=== PATIENT | female | born 1985 | race Caucasian/White ===

== ENCOUNTER 2023-09-08 20:15 | Outpatient (REF) | payer OTHER, SELFPAY ==
[2023-09-12 17:11] LABS: Age Gdln ACOG Testing Note (.); HPV Aptima Negative (Negative); IGP, Aptima HPV, rfx 16/18,45 Note (.)
== END 2023-09-08 20:16 | disposition home or self-care (01) ==
LOC: LAB 20:15
PROVIDERS: Visit Provider Physician Assistant
DX: Z01.419 Encounter for gynecological examination (general) (routine) without abnormal findings (principal)
CPT/HCPCS: 87624; G0145

== ENCOUNTER 2023-09-09 07:01 | Outpatient (OUT) | payer OTHER, SELFPAY ==
--- NOTE | 2023-09-09 07:10 | US_ITS ---
The [address] [address] Patient Name: EDNA FELIPE MRN: [id number] date: 1985 Sex: F Assigned Patient Location: US Current Patient Location: US Accession/Order Number: [id number] Exam Date: 09/09/2023 07:12 Report Date: 09/09/2023 08:03 At the request of: GABRIELLA ELIZONDO Procedure: US pelvis transvaginal EXAM: Pelvic ultrasound HISTORY: . IUD check Z30.431 . COMPARISON: None. TECHNIQUE: Transvaginal scanning was performed FINDINGS: Scanning of the pelvis demonstrates uterus to be anteverted and measures 8.4 x 3.9 x 4.6 cm. Endometrial complex measures 11 mm. Within the endometrial cavity are linear hyperechoic structures with shadowing consistent with an IUD which appears in good position. Right ovary measures 2.6 x 2 x 2.1 cm. Color-flow is noted. No masses are noted. Left ovary measures 3.2 x 2.8 x 3.1 cm. Color-flow is noted. There is a 2.3 x 2.2 cm simple cyst involving the left ovary. No fluid is noted in the cul-de-sac. US/US pelvis transvaginal IMPRESSION: 1. Normal-appearing anteverted uterus with a normal endometrial complex and IUD in place. 2. Normal right ovary. 3. 2.3 cm simple cyst in the left ovary. Electronically authenticated by: CRYSTAL PARRA Date: 09/09/2023 08:03
== END 2023-09-09 07:02 | disposition home or self-care (01) ==
PROVIDERS: Visit Provider Physician Assistant
DX: Z30.431 Encounter for routine checking of intrauterine contraceptive device (principal); N83.292 Other ovarian cyst, left side
CPT/HCPCS: 76830

== ENCOUNTER 2024-01-02 13:17 | Outpatient (OUT) | payer OTHER, SELFPAY ==
[2024-01-02 14:00] LABS: Basophils Percent Auto 0.3 % (0.2-2.0); Eosinophils Absolute Auto 0.1 10^3/uL (0.0-0.7); Eosinophils Percent Auto 1.1 % (0.9-7.0); Hemoglobin 13.4 g/dL (12.0-16.0); Immature Granulocytes Abs Auto 0.02 10^3/uL (0.00-0.03); Immature Granulocytes Pct Auto 0.2 % (0.0-0.5); Lymphocytes Absolute Auto 3.1 10^3/uL (1.2-3.8); Lymphocytes Percent Auto 28.8 % (20.5-60.0); Mean Corpuscular HGB Conc 32.7 g/dL (29.9-35.2); Mean Corpuscular Hemoglobin 28.6 pg (26.7-34.0); Mean Corpuscular Volume 87.4 fL (81.0-99.0); Mean Platelet Volume 10.4 fL (9.5-13.5); Monocytes Absolute Auto 0.4 10^3/uL (0.3-0.8); Neutrophils Absolute Auto 7.2 10^3/uL (1.4-6.5); Neutrophils Percent Auto 65.6 % (43.0-75.0); Platelet Count 371 10^3/uL (150-450); Red Blood Count 4.69 10^6/uL (4.20-5.40); White Blood Count 10.9 10^3/uL (4.0-11.0)
[2024-01-02 14:39] LABS: Estimated Average Glucose 120 mg/dL; Glycohemoglobin A1C 5.8 % (4.5-6.2)
[2024-01-02 15:35] LABS: Alanine Aminotransferase 22 U/L (14-59); Albumin Globulin Ratio 0.8; Albumin Level 3.3 g/dL (3.4-5.0); Alkaline Phosphatase 61 U/L (46-116); Anion Gap 15.8; Aspartate Amino Transferase 14 U/L (15-37); BUN Creatinine Ratio 13.5; Bilirubin Direct 0.1 mg/dL (0.0-0.2); Bilirubin Total 0.5 mg/dL (0.2-1.0); Calcium 9.2 mg/dL (8.5-10.1); Carbon Dioxide 24.7 mmol/L (21.0-32.0); Chloride 102 mmol/L (98-107); Chol HDL Ratio 4.3; Cholesterol 224 mg/dL (<=200); Estimated GFR (African America >60 (>=60); Estimated GFR (Non-African Ame >60 (>=60); Globulin 4.3 g/dL; Glucose 100 mg/dL (74-106); HDL Cholesterol 52 mg/dL (40-60); Potassium 3.5 mmol/L (3.5-5.1); Sodium 139 mmol/L (136-145); Total Protein 7.6 g/dL (6.4-8.2); Triglycerides 265 mg/dL (<=150)
== END 2024-01-02 13:18 | disposition home or self-care (01) ==
LOC: LAB 13:18
PROVIDERS: Visit Provider Family Medicine
DX: Z00.00 Encounter for general adult medical examination without abnormal findings (principal)
CPT/HCPCS: 36415; 80048; 80061; 80076; 83036; 84443; 85025

== ENCOUNTER 2024-01-08 00:40 | Emergency (ER) | payer OTHER, SELFPAY ==
[2024-01-08 00:44] VITALS: BP 160/100; PULSE 100; RESP 18; TEMP 36.7; O2SAT 99; BMI 56.5
--- OUTSIDE RECORDS SUMMARY | 2024-01-08 00:48 | XMS_ITS | CCD ---
Author Name Unknown Address [id number] [place] [address] Organization [facility] Care Team Providers Care Workplace Trainer And Assessor Name Role Phone FRANK REIS Primary Care UnavailHARPER Murphy Attending Unavailable FRANK REIS Primary Care UnavailHARPER Murphy Attending Unavailable MAYDA DAMIAN Referring Unavailable MAYDA DAMIAN Primary Care Unavailable Lili Luo Unavailable Marcia La Unavailable Lili Borges Unavailable DR FRANK REIS Admitting Unavailable CHATO, DR FRANK Garcia Primary Care Unavailable CHATO, DR FRANK Garcia Consulting Unavailable CHATO, DR FRANK Garcia Attending Unavailable KARASIGiovanna ., DR NUNEZ Attending Unavailjunior e CHATO, DR FRANK Garcia Primary Care Unavailable KARASIK ., DR NUNEZ Admitting Unavailabl e KARMASTER ., DR NUNEZ Consulting UnavailOctavia Salmon Unavailable Frank Reis MD Primary Care Provider FRANK REIS Attending Unavailable GER MYRICK Attending Unavailable ANGY ELIZONDO Attending Unavailable Allergies Allergy Classification Reported Allergen(s) Allergy Type Date of Onset Reaction(s) Facility (6 sources) Amoxicillin Drug Allergy 10-23-20 16 Rash [facility] (5 sources) Sulf-10 Drug allergy rash, nausea [facility] Other (1 source) Amoxicillin Drug Allergy 02-17-20 16 [facility] (1 source) Penicillin Drug Allergy [facility] (1 source) Sulfonamides (Antibiotic) Drug allergy (disorder) 02-17-20 16 [facility] (1 source) Penicillins Drug Intolerance 12-30-19 18 Rash [facility] (1 source) Sulfonamides (Antibiotic) Drug Intolerance 10-23-20 16 [facility] Medications Current Medications Medication Drug Class(es) Dates Sig (Normalized) Sig (Original) clonazePAM 1 mg oral tablet (7 sources) Benzodiazepine Start: 12-03-2023 take 1 tablet by mouth three times daily as needed clonazePAM (KlonoPIN) 1 MG tablet Indications: Major depressive disorder, recurrent, mild (HCC) (CMS/HCC) , Major depressive disorder, recurrent episode, mild (HCC) (CMS/HCC) TAKE 1 TABLET BY MOUTH THREE TIMES A DAY NEEDED 90 tablet 0 12/03/2023 Active Start: 07-15-2023 End: 12-03-2023 take 1 tablet by mouth three times daily as needed clonazePAM (KlonoPIN) 1 MG tablet Take 1 mg by mouth 3 (three) times a day as needed. 0 07/15/2023 12/03/2023 Discontinued KlonoPIN Active doxycycline hyclate 100 mg oral capsule (1 source) Tetracycline-class Drug Start: 07-17-2023 take 1 capsule by mouth every twelve hours Doxycycline Hyclate 100 MG 1 capsule Orally Twice a day for 10 days Jun, Active fluticasone propionate 0.05 mg/actuat metered dose nasal spray (1 source) Corticosteroid Start: 10-10-2021 take 2 spray(s) nasal route once daily Fluticasone Propionate 50 MCG/ACT 2 sprays Nasally Once a day for 14 day(s) Sep, Active Fluticasone Furoate 27.5 MCG/SPRAY (5 sources) Start: 06-29-2021 take 2 puff(s) nasal route once daily Fluticasone Furoate 27.5 MCG/SPRAY 2 puffs Nasally Once a day for 10 day(s) Jun, Active hydroCHLOROthiazide 25 mg / losartan potassium 100 mg oral tablet (3 sources) Thiazide Diuretic, Angiotensin 2 Receptor Charbel take 1 tablet by mouth in the morning losartan-hydroC HLOROthiazide (Hyzaar) 100-25 MG tablet Take 1 tablet by mouth in the morning. 0 Active take 1 tablet by emani th every twenty-four hours Losartan Potassium-HCTZ 100-25 MG 1 tabl et Orally Once a day Active lamoTRIgine 150 mg oral tablet (6 sources) Mood Stabilizer, Anti-epileptic Agent Start: 07-14-2023 take 1 tablet by mouth at bedtime lamoTRIgine (LaMICtal) 150 MG tablet Take 1 tablet by mouth at bedtime. 0 07/14/2023 Active LaMICtal Active Levonorgestrel (5 sources) Progestin, Progestin-containing Intrauterine Device Mirena Active methylPREDNISolone 4 mg oral tablet (6 sources) Corticosteroid Start: 023 methylPREDNISolone 4 MG take half with breakfast, half with dinner Orally as directed for 6 days Jun, Active Start: 07-11-2022 methylPREDNISo lone 4 MG as directed Orally for daily dose take half with breakfast, half with dinner for 6 days Jan, Not-Taking Metoprolol (3 sources) beta-Adrenergic Charbel Metoprolol Succinate Active predniSONE 20 mg oral tablet (1 source) Start: 021 take 1 tablet by mouth every twelve hours predniSONE 20 MG 1 tablet Orally bid for 5 day(s) Sep, Active Semaglutide-Weight Management (Wegovy) 0.25 MG/0.5ML solution auto-injector (1 source) Start: 023 inject 0.25 mg by subcutaneous injection every week Semaglutide-Weight Management (Wegovy) 0.25 MG/0.5ML solution auto-injector Indications: Morbid obesity with BMI of 60.0-69.9, adult (CMS/HCC) Inject 0.25 mg under the skin 1 (one) time per week 2 mL 0 09/29/2023 Active SUMAtriptan 25 mg oral tablet (1 source) Serotonin-1b and Serotonin-1d Receptor Agonist SUMAtriptan (Imitrex) 25 MG tablet TAKE 1 TABLET BY MOUTH ONCE NEEDED AT THE ONSET OF A HEADACHE. MAY REPEAT IN 2 HOURS ONCE 0 Active 24 hr venlafaxine 225 mg extended release oral tablet (6 sources) Serotonin and Norepinephrine Reuptake Inhibitor take 1 tablet by mouth every twenty-four hours in the morning venlafaxine XR (Effexor XR) 225 MG 24 hr tablet Take 225 mg by mouth in the morning. 0 Active Effexor Active 24 hr verapamil hydrochloride 120 mg extended release oral capsule (6 sources) Calcium Channel Charbel take 1 capsule by mouth every twenty-four hours at bedtime verapamil ER (Verelan) 120 MG 24 hr capsule Take 120 mg by mouth at bedtime. 0 Active Verapamil HCl Ac tive Completed/Discontinued Medications Medication Drug Class(es) Dates Sig (Normalized) Sig (Original) [id number] 200 actuat albuterol 0.09 mg/actuat metered dose inhaler (3 sources) beta2-Adrenergic Agonist Start: 07-11-2022 take 2 puff(s) by inhalation every four to six hours as needed Albuterol Sulfate HFA 108 (90 Base) MCG/ACT 2 puffs as needed Inhalation every 4-6 hours for 14 days Jun, Not-Taking Start: 07-11-2022 take 2 puff(s) by in halation every four to six hours as needed Albuterol Sulfate HFA 108 (90 Base) MCG/ACT 2 puffs as needed Inhalation every 4-6 hours for 14 days Jun, Not-Taking azithromycin 250 mg oral tablet (3 sources) Macrolide Antimicrobial Start: 07-11-2022 Azithromycin 250 MG 2 tablet on the first day, then 1 tablet daily for 4 days Orally Once a day for 5 day(s) Jun, Not-Taking dextromethorphan hydrobromide 1.5 mg/ml / pyrilamine maleate 1.5 mg/ml oral solution (8 sources) Uncompetitive P-pbeppo-U-aspartat e Receptor Antagonist, Sigma-1 Agonist Start: 07-11-2022 take 10 mL by mouth every eight hours [place] DM 7.5-7.5 MG/5ML 10 mL Orally every 8 hours for 5 days Jun, Not-Taking Start: 09-01-2020 [place] DM 7.5- 7.5 MG/5ML 10 ml Orally every 6-8 hours as needed for 8 days Aug, Not-Taking promethazine hydrochloride 12.5 mg oral tablet (5 sources) Phenothiazine Start: 09-01-2020 take 1 tablet by mouth every six hours Promethazine HCl 12.5 MG 1 tablet as needed Orally every 6 hrs for 4 days Aug, Not-Taking traZODone (5 sources) Serotonin Reuptake Inhibitor traZODone HCl Not-Taking traZODone HCl Ac tive Problems Active Problems Problem Classification Problem Date Documented Da te Episodic/Chronic Essential hypertension (1 source) Essential hypertension; Translations: [Essential (primary) hypertension] Onset: 09-10-2018 09-29-2023 Chronic Headache; including migraine (6 sources) Episodic cluster headache; Translations: [Episodic cluster headache, intractable] Onset: 09-10-2018 09-29-2023 Chronic Immunizations and screening for infectious disease (6 sources) Contact with and (suspected) exposure to other viral communicable diseases; Translations: [Contact with and (suspected) exposure to other viral communicable diseases] Onset: 08-31-2021 Resolved: 07-11-2022 Episodic Mood disorders (2 sources) Recurrent major depressive episodes, mild ; Translations: [Major depressive disorder, recurrent, mild] 12-01-2023 Chronic Nutritional deficiencies (1 source) Vitamin D deficiency, unspecified; Translations: [Vitamin D deficiency, unspecified] Onset: 09-10-2018 Chronic Other nutritional; endocrine; and metabolic disorders (1 source) Body mass index 40+ - severely obese; Translations: [Morbid (severe) obesity due to excess calories] Onset: 09-10-2018 09-29-2023 Chronic Other upper respiratory infections (5 sources) Acute pharyngitis, unspecified; Translations: [Acute sinusitis, unspecified] Onset: 08-31-2021 Resolved: 10-10-2021 Episodic Residual codes; unclassified (1 source) Obstructive sleep apnea syndrome; Translations: [Obstructive sleep apnea (adult) (pediatric)] Onset: 12-06-2021 09-29-2023 Chronic Viral infection (1 source) Other viral agents as the cause of diseases classified elsewhere Episodic Past or Other Problems Problem Classification Problem Date Documented Da te Episodic/Chronic Chronic obstructive pulmonary disease and bronchiectasis (1 source) Bronchitis, not specified as acute or chronic Onset: 07-11-2022 Resolved: 07-11-2022 Episodic Diseases of mouth; excluding dental (1 source) Other lesions of oral mucosa Onset: 08-31-2021 Resolved: 08-31-2021 Episodic Nausea and vomiting (1 source) Nausea; Translations: [Nausea] Onset: 01-12-2018 Episodic Other infections; including parasitic (4 sources) Trichomoniasis, unspecified; Translations: [TRICHOMONIASIS UNSPECIFIED] Onset: 03-05-2022 Episodic Otitis media and related conditions (1 source) Dysfunction of eustachian tube; Translations: [Unspecified Eustachian tube disorder, unspecified ear] Onset: 10-16-2017 09-29-2023 Episodic Skin and subcutaneous tissue infections (1 source) Cellulitis of right finger; Translations: [Cellulitis of right finger] Onset: 12-29-2017 Episodic Unclassified (2 sources) Contact with and (suspected) exposure to covid-19 Z20.822 Results Test Name Value Interpretation Reference Range Facility COVID/FLU RT-PCRon SARS-CoV-2 (COVID-19) RNA MOHAN+probe Ql (Unsp spec) Positive [facility] Other COVID/FLU RT-PCR Negative [facility] [employer] Other CBC AUTO DIFFon 02-19-2023 BASO # 0.0 103/ul Normal 0.0-0.[address] [facility] Comment on above: Performed By: #### C BC #### [facility] [address] [place] [address] Dr. Maxi Chen Basophils/100 WBC (Bld) 0.2 % Normal 0.2-2.[address] [facility] Comment on above: Performed By: #### C BC #### [facility] [address] [place] [address] Dr. Maxi Chen EO # 0.1 103/ul Normal 0.0-0.[address] [facility] Comment on above: Performed By: #### C BC #### [facility] [address] [place] [address] Dr. Maxi Chen Eosinophils/100 WBC (Bld) 1.7 % Normal 0.9-7.[address] [facility] Comment on above: Performed By: #### C BC #### [facility] [address] [place] [address] Dr. Maxi Chen Erythrocyte distribution width (RBC) [Ratio] 14.5 % Normal 11.0-15.[address] [facility] Comment on above: Performed By: #### C BC #### [facility] [address] [place] [address] Dr. Maxi Chen Hematocrit (Bld) [Volume fraction] 41.0 % Normal 36.0-48.[address] [facility] Comment on above: Performed By: #### C BC #### [facility] [address] [place] [address] Dr. Maxi Chen Hemoglobin (Bld) [Mass/Vol] 13.3 g/dL Normal 12.0-16.[address] [facility] Comment on above: Performed By: #### C BC #### [facility] [address] [place] [address] Dr. Maxi Chen IG # 0.02 10e3/ul Normal 0.00-0.[address] [facility] Comment on above: Performed By: #### C BC #### [facility] [address] [place] [address] Dr. Maxi Chen IG % 0.2 % Normal 0.0-0.[address] [facility] Comment on above: Performed By: #### C BC #### [facility] [address] [place] [address] Dr. Maxi Chen LYMPH # 2.2 103/ul Normal 1.2-3.[address] [facility] Comment on above: Performed By: #### C BC #### [facility] [address] [place] [address] Dr. Maxi Chen Lymphocytes/100 WBC (Bld) 26.3 % Normal 20.5-60.[address] [facility] Comment on above: Performed By: #### C BC #### [facility] [address] [place] [address] Dr. Maxi Chen MANUAL DIFF REQ NO Normal [facility] Comment on above: Performed By: #### C BC #### [facility] [address] [place] [address] Dr. Maxi Chen MCH (RBC) [Entitic mass] 28.1 pg Normal 26.7-34.[address] [facility] Comment on above: Performed By: #### C BC #### [facility] [address] [place] [address] Dr. Maxi Chen MCHC (RBC) [Mass/Vol] 32.4 g/dL Normal 29.9-35.[address] [facility] Comment on above: Performed By: #### C BC #### [facility] [address] [place] [address] Dr. Maxi Chen MCV (RBC) [Entitic vol] 86.7 fL Normal 81.0-99.[address] [facility] Comment on above: Performed By: #### C BC #### [facility] [address] [place] [address] Dr. Maxi Chen MONO # 0.4 103/ul Normal 0.3-0.[address] [facility] Comment on above: Performed By: #### C BC #### [facility] [address] [place] [address] Dr. Maxi Chen Monocytes/100 WBC (Bld) 5.3 % Normal 1.7-12.[address] [facility] Comment on above: Performed By: #### C BC #### [facility] [address] [place] [address] Dr. Maxi Chen NEUT # 5.6 103/ul Normal 1.4-6.[address] [facility] Comment on above: Performed By: #### C BC #### [facility] [address] [place] [address] Dr. Maxi Chen Neutrophils/100 WBC (Bld) 66.3 % Normal 43.0-75.[address] [facility] Comment on above: Performed By: #### C BC #### [facility] [address] [place] [address] Dr. Maxi Chen Platelet mean volume (Bld) [Entitic vol] 10.1 fL Normal 9.5-13.[address] [facility] Comment on above: Performed By: #### C BC #### [facility] [address] [place] [address] Dr. Maxi Chen PLT 343 103/ul Normal 150-450 [facility] Comment on above: Performed By: #### C BC #### [facility] [address] [place] [address] Dr. Maxi Chen RBC 4.73 106/ul Normal 4.20-5.40 [facility] Comment on above: Performed By: #### C BC #### [facility] [address] [place] [address] Dr. Maxi Chen WBC 8.4 103/ul Normal 4.0-11.[address] [facility] Comment on above: Performed By: #### C BC #### [facility] [address] [place] [address] Dr. Maxi Chen GLYCOHEMOGLOBIN A1Con 2022 ADA RECOMMENDATION SEE BELOW Normal [facility] Comment on above: Result Comment: ADA RECOMMENDED LIMIT 4.0 - 6.0 ADA THERAPEUTIC TARGET < 7.0 ACTION SUGGESTED > 7.0 Performed By: #### A 1C #### [facility] [address] [place] [address] Dr. Maxi Chen Glucose [Mass/Vol] 117 mg/dL Normal [facility] Comment on above: Performed By: #### A 1C #### [facility] [address] [place] [address] Dr. Maxi Chen HbA1c (Bld) [Mass fraction] 5.7 % Normal 4.5-6.[address] [facility] Comment on above: Performed By: #### A 1C #### [facility] [address] [place] [address] Dr. Maxi Chen LIPID PROFILEon 02-19-2023 CHOL-HDL RATIO NORM SEE BELOW Normal [facility] Comment on above: Result Comment: 3.3 - 4.4 LOW RISK 4.4 - 7.1 AVERAGE RISK 7.1 - 11.0 MODERATE RISK >11.0 HIGH RISK Performed By: #### T SH, BMP, LIVER, LIPID #### [facility] [address] [place] [address] Dr. Maxi Chen Cholesterol [Mass/Vol] 220 mg/dL Critically high <=[address] [facility] Comment on above: Performed By: #### T SH, BMP, LIVER, LIPID #### [facility] [address] [place] [address] Dr. Maxi Chen Cholesterol in HDL [Mass/Vol] 42 mg/dL Normal 40-[address] [facility] Comment on above: Performed By: #### T SH, BMP, LIVER, LIPID #### [facility] [address] [address] [address] Maxi Chen Cholesterol in LDL [Mass/Vol] 135.0 mg/dL Normal [facility] Comment on above: Performed By: #### T SH, BMP, LIVER, LIPID #### [facility] [address] [address] [address] Maxi Chen Cholesterol.total/Ch olesterol in HDL [Mass ratio] 5.2 {ratio} Normal [facility] Comment on above: Performed By: #### T SH, BMP, LIVER, LIPID #### [facility] [address] [address] [address] Maxi Chen HDL NORMAL > or = 60 mg/dl - LOW CARDIOVASCULAR RISK <40 mg/dl - HIGH CARDIOVASCULAR RISK Normal [facility] Comment on above: Performed By: #### T SH, BMP, LIVER, LIPID #### [facility] [address] [address] [address] Maxi Chen LDL CALC NORMAL SEE BELOW Normal [facility] Comment on above: Result Comment: <100 mg/dl OPTIMAL 100 - 129 mg/dl NEAR OR ABOVE OPTIMAL 130 - 159 mg/dl BORDERLINE HIGH 160 - 189 mg/dl HIGH >190 mg/dl VERY HIGH Performed By: #### T SH, BMP, LIVER, LIPID #### [facility] [address] [address] [address] Maxi Chen Triglyceride [Mass/Vol] 215 mg/dL Critically high <=[address] [facility] Comment on above: Performed By: #### T SH, BMP, LIVER, LIPID #### [facility] [address] [address] [address] Maxi Chen VLDL CALC 43.0 mg/dL Normal [facility] Comment on above: Performed By: #### T SH, BMP, LIVER, LIPID #### [facility] [address] [address] [address] Maxi Chen LIVER PROFILEon 02-19-2023 Albumin [Mass/Vol] 3.3 g/dL Critically low 3.4-5.0 [facility] Comment on above: Performed By: #### T SH, BMP, LIVER, LIPID #### [facility] [address] [address] [address] Maxi Chen Albumin/Globulin [Mass ratio] 0.8 {ratio} Normal [facility] Comment on above: Performed By: #### T SH, BMP, LIVER, LIPID #### [facility] [address] [place] [address] Dr. Maxi Chen ALP [Catalytic activity/Vol] 58 U/L Normal 46-[address] [facility] Comment on above: Performed By: #### T SH, BMP, LIVER, LIPID #### [facility] [address] [place] [address] Dr. Maxi Chen ALT [Catalytic activity/Vol] 37 U/L Normal 14-[address] [facility] Comment on above: Performed By: #### T SH, BMP, LIVER, LIPID #### [facility] [address] [place] [address] Dr. Maxi Chen AST [Catalytic activity/Vol] 18 U/L Normal 15-[address] [facility] Comment on above: Performed By: #### T SH, BMP, LIVER, LIPID #### [facility] [address] [place] [address] Dr. Maxi Chen BILI, CONJUGATED 0.1 mg/dL Normal 0.0-0.[address] [facility] Comment on above: Performed By: #### T SH, BMP, LIVER, LIPID #### [facility] [address] [place] [address] Dr. Maxi Chen Bilirubin [Mass/Vol] 0.4 mg/dL Normal 0.2-1.[address] [facility] Comment on above: Performed By: #### T SH, BMP, LIVER, LIPID #### [facility] [address] [place] [address] Dr. Maxi Chen Globulin (S) [Mass/Vol] 4.2 g/dL Normal [facility] Comment on above: Performed By: #### T SH, BMP, LIVER, LIPID #### [facility] [address] [place] [address] Dr. Maxi Chen Protein [Mass/Vol] 7.5 g/dL Normal 6.4-8.2 [facility] Comment on above: Performed By: #### T SH, BMP, LIVER, LIPID #### [facility] [address] [address] [address] Maxi Chen PROF CHEM 8 (BAS METB)on Anion gap [Moles/Vol] 11.8 mmol/L Normal [facility] Comment on above: Performed By: #### T SH, BMP, LIVER, LIPID #### [facility] [address] [place] [address] Dr. Maxi Chen Calcium [Mass/Vol] 9.1 mg/dL Normal 8.5-10.1 [facility] Comment on above: Performed By: #### T SH, BMP, LIVER, LIPID #### [facility] [address] [place] [address] Dr. Maxi Chen Chloride [Moles/Vol] 102 mmol/L Normal 98-107 [facility] Comment on above: Performed By: #### T SH, BMP, LIVER, LIPID #### [facility] [address] [place] [address] Dr. Maxi Chen CO2 [Moles/Vol] 30.5 mmol/L Normal 21.0-32.[address] [facility] Comment on above: Performed By: #### T SH, BMP, LIVER, LIPID #### [facility] [address] [place] [address] Dr. Maxi Chen Creatinine [Mass/Vol] 0.76 mg/dL Normal 0.55-1.02 [facility] Comment on above: Performed By: #### T SH, BMP, LIVER, LIPID #### [facility] [address] [place] [address] Dr. Maxi Chen EGFR-AF LATVIAN >60 Normal >=60 [facility] Comment on above: Performed By: #### T SH, BMP, LIVER, LIPID #### [facility] [address] [place] [address] Dr. Maxi Chen EGFR-NON AF LATVIAN >60 Normal >=60 [facility] Comment on above: Performed By: #### T SH, BMP, LIVER, LIPID #### [facility] [address] [address] [address] Maxi Chen Glucose [Mass/Vol] 106 mg/dL Normal 74-106 [facility] Comment on above: Performed By: #### T SH, BMP, LIVER, LIPID #### [facility] [address] [place] [address] Dr. Maxi Chen Potassium [Moles/Vol] 3.3 mmol/L Critically low 3.5-5.[address] [facility] Comment on above: Performed By: #### T SH, BMP, LIVER, LIPID #### [facility] [address] [place] [address] Dr. Maxi Chen Sodium [Moles/Vol] 141 mmol/L Normal 136-145 [facility] Comment on above: Performed By: #### T BRYSON, BMP, LIVER, LIPID #### [facility] [address] [place] [address] Dr. Maxi Chen Urea nitrogen [Mass/Vol] 5.0 mg/dL Critically low 7.0-18.[address] [facility] Comment on above: Performed By: #### T BRYSON, BMP, LIVER, LIPID #### [facility] [address] [place] [address] Dr. Maxi Chen Urea nitrogen/Creatinine [Mass ratio] 6.6 mg/mg Normal [facility] Comment on above: Performed By: #### T BRYSON, BMP, LIVER, LIPID #### [facility] [address] [place] [address] Dr. Maxi Chen TSHon 02-19-2023 TSH 1.302 uIU/mL Normal 0.358-3.740 [facility] Comment on above: Performed By: #### T BRYSON, BMP, LIVER, LIPID #### [facility] [address] [place] [address] Dr. Maxi Chen COVID + FLU Quick Testingon 02-04-2023 SARS-CoV-2 (COVID-19) RNA MOHAN+probe Ql (Unsp spec) Negative [facility] Other COVID + FLU Quick Testing Negative [facility] [employer] Other Quick Strepon 02-04-2023 S. pyogenes Org specific cx Ql (Throat) Negative [facility] Other Quick Strep [facility] Other COVID Quick Testingon 2021 Result Negative [employer] [facility] [employer] Other CHLAMYDIA/GONOCOCCUS MOHAN (SW AB/URINE/PAPon 03-06-2022 Chlamydia trachomatis, MOHAN Negative Normal Negative [facility] Comment on above: Performed By: #### C T/NGNA #### [facility] [address] [place] [address] Dr. Maxi Chen Neisseria gonorrhoeae, MOHAN Negative Normal Negative [facility] Comment on above: Performed By: #### C T/NGNA #### [facility] [address] [place] [address] Dr. Maxi Chen VAGINITIS/VAGINOSIS DNA PROB Evert 03-06-2022 Maye species Negative Normal Negative [facility] Comment on above: Performed By: #### V AGINT #### [facility] [address] [address] [address] Maxi Chen Gardnerella vaginalis Negative Normal Negative [facility] Comment on above: Performed By: #### V AGINT #### [facility] [address] [place] [address] Dr. Maxi Chen Trichomonas vaginalis Negative Normal Negative [facility] Comment on above: Performed By: #### V AGINT #### [facility] [address] [address] [address] Maxi Chen CBCon 09-10-2018 Erythrocyte distribution width Ratio (RBC) 14.3 % Normal 11.8-14.4 [facility] Comment on above: Performed By: #### C BC, CP, LIPR, VD25 #### [facility] [place] [address] Hematocrit Volume Fraction (Bld) 42.8 % Normal 36.3-47.1 [facility] Comment on above: Performed By: #### C BC, CP, LIPR, VD25 #### [address] [address] Hemoglobin mass conc (Bld) 13.5 g/dL Normal 11.9-15.1 [facility] Comment on above: Performed By: #### C BC, CP, LIPR, VD25 #### [address] [address] MCH Entitic mass (RBC) 27.3 pg Normal 25.2-33.5 [facility] Comment on above: Performed By: #### C BC, CP, LIPR, VD25 #### [facility] [employer] [address] [place] [address] MCHC mass conc (RBC) 31.5 g/dL Normal 28.4-34.8 [facility] Comment on above: Performed By: #### C BC, CP, LIPR, VD25 #### [address] [address] MCV Entitic volume (RBC) 86.5 fL Normal 82.6-102.9 [facility] Comment on above: Performed By: #### C BC, CP, LIPR, VD25 #### [address] [address] NRBC Automated 0.0 per 100 WBC Normal 0.0 [facility] Comment on above: Performed By: #### C BC, CP, LIPR, VD25 #### [address] [address] Platelet mean volume Entitic volume (Bld) 11.4 fL Normal 8.1-13.5 [facility] Comment on above: Performed By: #### C BC, CP, LIPR, VD25 #### [address] [address] Platelets #/vol (Bld) 360 10*3/uL Normal 138-453 [facility] Comment on above: Performed By: #### C BC, CP, LIPR, VD25 #### [facility] [place] [address] RBC #/vol (Bld) 4.95 10*6/uL Normal 3.95-5.11 [facility] Comment on above: Performed By: #### C BC, CP, LIPR, VD25 #### [facility] [address] [place] [address] WBC #/vol (Bld) 10.0 10*3/uL Normal 3.5-11.3 [facility] Comment on above: Performed By: #### C BC, CP, LIPR, VD25 #### [facility] [employer] [address] [place] [phone] Comp Metabolic Profon 2017 (cont.) Normal [facility] Comment on above: Result Comment: Aver age GFR for 30-39 years old: 107 mL/min/1.73sq m Chronic Kidney Disease: <60 mL/min/1.73sq m Kidney failure: <15 mL/min/1.73sq m eGFR calculated using average adult body mass. Additional eGFR calculator available at: http://[email or web address].com/multiple_crcl_2012.htm Performed By: #### C BC, CP, LIPR, VD25 #### [facility] [address] [place] [address] Albumin mass conc 4.2 g/dL Normal 3.5-5.2 [facility] Comment on above: Performed By: #### C BC, CP, LIPR, VD25 #### [facility] [employer] [address] [place] [phone] Albumin/Globulin mass ratio 1.2 {ratio} Normal 1.0-2.5 [facility] Comment on above: Performed By: #### C BC, CP, LIPR, VD25 #### [facility] [employer] [address] [place] [phone] Alkaline Phos 63 U/L Normal 35-104 [facility] Comment on above: Performed By: #### C BC, CP, LIPR, VD25 #### [facility] [employer] [address] [place] [address] ALT enzyme act/vol 21 U/L Normal 5-33 [facility] Comment on above: Performed By: #### C BC, CP, LIPR, VD25 #### [facility] [employer] [address] [place] [address] Anion gap molar conc 25 mmol/L High 9-17 [facility] Comment on above: Performed By: #### C BC, CP, LIPR, VD25 #### [facility] [employer] [address] [place] [address] AST enzyme act/vol 18 U/L Normal <32 [facility] Comment on above: Performed By: #### C BC, CP, LIPR, VD25 #### [facility] [employer] [address] [place] [address] Bilirubin Ql (U) 0.29 mg/dL Low 0.3-1.[address] [facility] Comment on above: Performed By: #### C BC, CP, LIPR, VD25 #### [facility] [employer] [address] [place] [phone] Calcium mass conc 9.3 mg/dL Normal 8.6-10.4 [facility] Comment on above: Performed By: #### C BC, CP, LIPR, VD25 #### [facility] [address] [place] [address] Chloride molar conc 98 mmol/L Normal 98-107 [facility] Comment on above: Performed By: #### C BC, CP, LIPR, VD25 #### [facility] [employer] [address] [place] [address] CO2 molar conc 21 mmol/L Normal 20-31 [facility] Comment on above: Performed By: #### C BC, CP, LIPR, VD25 #### [address] [address] Creatinine mass conc 0.52 mg/dL Normal 0.50-0.90 [facility] Comment on above: Performed By: #### C BC, CP, LIPR, VD25 #### [facility] [employer] [address] [place] [address] GFR, Amer >60 Normal >[address] [facility] Comment on above: Performed By: #### C BC, CP, LIPR, VD25 #### [facility] [employer] [address] [place] [address] GFR,non Amer >60 Normal >60 [facility] Comment on above: Performed By: #### C BC, CP, LIPR, VD25 #### [facility] [employer] [address] [place] [address] Glucose mass conc 93 mg/dL Normal 70-99 [facility] Comment on above: Performed By: #### C BC, CP, LIPR, VD25 #### [facility] [employer] [address] [place] [address] Potassium molar conc 3.8 mmol/L Normal 3.7-5.3 [facility] Comment on above: Performed By: #### C BC, CP, LIPR, VD25 #### [facility] [employer] [address] [place] [address] Protein mass conc 7.6 g/dL Normal 6.4-8.3 [facility] Comment on above: Performed By: #### C BC, CP, LIPR, VD25 #### [employer] [address] [place] [address] Sodium molar conc 144 mmol/L Normal 135-144 [facility] Comment on above: Performed By: #### C BC, CP, LIPR, VD25 #### [employer] [address] [place] [address] Urea nitrogen mass conc 9 mg/dL Normal 6-20 [facility] Comment on above: Performed By: #### C BC, CP, LIPR, VD25 #### [facility] [employer] [address] [place] [address] BUN/CRE Ratio NOT REPORTED Normal -20 [facility] Comment on above: Performed By: #### C BC, CP, LIPR, VD25 #### [facility] [employer] [address] [place] [phone] Staging: NOT REPORTED Normal [facility] Comment on above: Performed By: #### C BC, CP, LIPR, VD25 #### [facility] [employer] [address] [place] [address] Lipid Profileon 09-10-2018 Cholesterol in HDL mass conc 47 mg/dL Normal >40 [facility] Comment on above: Result Comment: HDL Guidelines: <40 Undesirable 40-59 Borderline >59 Desirable Performed By: #### C BC, CP, LIPR, VD25 #### [facility] [employer] [address] [place] [address] Cholesterol in LDL mass conc 134 mg/dL High 0-130 [facility] Comment on above: Result Comment: LDL Guidelines: <100 Desirable 100-129 Near to/above Desirable 130-159 Borderline >159 Undesirable Direct (measured) LDL and calculated LDL are not interchangeable tests. Performed By: #### C BC, CP, LIPR, VD25 #### [facility] [address] [place] [address] Cholesterol mass conc 227 mg/dL High <200 [facility] Comment on above: Result Comment: Cholesterol Guidelines: <200 Desirable 200-240 Borderline >240 Undesirable Performed By: #### C BC, CP, LIPR, VD25 #### [address] [address] Cholesterol.total/Ch olesterol in HDL mass ratio 4.8 {ratio} Normal <5 [facility] Comment on above: Performed By: #### C BC, CP, LIPR, VD25 #### [facility] [address] [place] [address] Triglyceride mass conc 229 mg/dL High <150 [facility] Comment on above: Result Comment: Triglyceride Guidelines: <150 Desirable 150-199 Borderline 200-499 High >499 Very high Based on AHA Guidelines for fasting triglyceride, July 2012. Performed By: #### C BC, CP, LIPR, VD25 #### [facility] [employer] [address] [place] [phone] Cholesterol in VLDL mass conc NOT REPORTED Normal -30 [facility] Comment on above: Performed By: #### C BC, CP, LIPR, VD25 #### [facility] [employer] [address] [place] [phone] Vitamin D 25 OHon 09-10-2018 Vitamin D 25 [place] 12.1 ng/mL Low 30.0-100.0 [facility] Comment on above: Result Comment: Reference Range: Vitamin D status Range Deficiency <20 ng/mL Mild Deficiency 20-30 ng/mL Sufficiency 30-100 ng/mL Toxicity >100 ng/mL Performed By: #### C BC, CP, LIPR, VD25 #### [address] [address] HCG, ,Urineon 01-12 HCG.beta subunit ( test) Ql (U) Negative Normal NEG [facility] Comment on above: Result Comment: Spec imens with hCG levels near the threshold of the test (25 mIU/mL) may give a negative or indeterminate result. In such cases, another test should be performed with a new specimen in 48-72 hours. If early is suspected clinically in this setting, correlation with quantitative serum b-hCG level is suggested. Performed at [facility] [place], [address] [place] [address] UA w/Reflex Cultureon 2017 Comment NOT REPORTED Normal [facility] Acetoacetic Acid,Ur Negative Normal NEG [facility] Bilirubin.direct mass conc Negative Normal NEG [facility] Color Nom (U) YELLOW Normal YEL [facility] Glucose mass conc Negative Normal NEG [facility] Hemoglobin mass conc (Bld) SMALL Abnormal NEG [facility] Leuckocyte Esterase Negative Normal NEG [facility] Comment on above: Result Comment: Perf ormed at [facility] [place], [address] [place] [address] Nitrite,Ur Negative Normal NEG [facility] PH,Ur 7.0 Normal 5.0-8.0 [facility] Protein mass conc Negative Normal NEG [facility] Spec. [place],Ur 1.015 Normal 1.005-1.030 [facility] Turbidity CLEAR Normal CLEAR [facility] Urobilinogen,Ur Normal Normal NORM [facility] Urinalysis,Microon 8 Amorphous sediment LM Ql (Urine sed) NOT REPORTED Normal [facility] Bacteria LM.HPF #/area (Urine sed) NOT REPORTED Normal [facility] Casts LM.LPF #/area (Urine sed) NOT REPORTED Normal [facility] Crystals LM Nom (Urine sed) NOT REPORTED Normal NONE [facility] Epithelial, Renal NOT REPORTED Normal 0 [facility] Mucus Strands NOT REPORTED Normal NONE [facility] Trichomonas NOT REPORTED Normal NONE [facility] Yeast LM Ql (Urine sed) NOT REPORTED Normal [facility] ----- Normal [facility] Epithelial cells LM.HPF #/area (Urine sed) 0 TO 2 Normal 0-5 [facility] Other Observations Utilizing a urinalysis as the only screening method to exclude a potential Abnormal NREQ [facility] Comment on above: Result Comment: urop athogen can be unreliable in many patient populations. Rapid screening tests are less sensitive than culture and if UTI is a clinical possibility, culture should be considered despite a negative urinalysis. Performed at [facility], [address] [place] [phone] RBC #/vol (U) 0 TO 2 Normal 0-2 [facility] WBC #/vol (U) None Normal 0-5 [facility] Vital Signs Date Time Vital Sign Value Performing Clinician Facility 07-17-2023 10:40-0400 Body height 165.1 cm Octavia Keen Other [facility] Other 07-17-2023 10:40-0400 Body mass index (BMI) [Ratio] 57.74 kg/m2 Octavia Keen Other [facility] Other 07-17-2023 10:40-0400 Body temperature 98.3 [degF] Octavia Keen Other [facility] Other 07-17-2023 10:40-0400 Body weight 157.4 kg Octavia Keen Other [facility] Other 07-17-2023 10:40-0400 Diastolic blood pressure 94 mm[Hg] Octavia Keen Other [facility] Other 07-17-2023 10:40-0400 Respiratory rate 18 /min Octavia Keen Other [facility] Other 07-17-2023 10:40-0400 SaO2% (BldA) [Mass fraction] 98 % Octavia Keen Other [facility] Other 07-17-2023 10:40-0400 Systolic blood pressure 147 mm[Hg] Octavia Keen Other [facility] Other 02-04-2023 15:10-0400 Body height 165.1 cm Lili Borges Other [facility] Other 02-04-2023 15:10-0400 Body mass index (BMI) [Ratio] 57.9 kg/m2 Lili Borges Other [facility] Other 02-04-2023 15:10-0400 Body temperature 99.1 [degF] Lili Borges Other [facility] Other 02-04-2023 15:10-0400 Body weight 157.85 kg Lili Borges Other [facility] Other 02-04-2023 15:10-0400 Diastolic blood pressure 100 mm[Hg] Lili Borges Other [facility] Other 02-04-2023 15:10-0400 Respiratory rate 18 /min Lili Borges Other [facility] Other 02-04-2023 15:10-0400 SaO2% (BldA) [Mass fraction] 96 % Lili Borges Other [facility] Other 02-04-2023 15:10-0400 Systolic blood pressure 153 mm[Hg] Lili Borges Other [facility] Other 07-11-2022 12:50-0400 Body height 165.1 cm Lili Borges Other [facility] Other 07-11-2022 12:50-0400 Body mass index (BMI) [Ratio] 59.9 kg/m2 Lili Borges Other [facility] Other 07-11-2022 12:50-0400 Body temperature 97.7 [degF] Lili Borges Other [facility] Other 07-11-2022 12:50-0400 Body weight 163.3 kg Lili Borges Other [facility] Other 07-11-2022 12:50-0400 Respiratory rate 18 /min Lili Borges Other [facility] Other 07-11-2022 12:50-0400 SaO2% (BldA) [Mass fraction] 97 % Lili Borges Other [facility] Other 10-10-2021 15:15-0500 Body height 165.1 cm Marcia Gregorymond Other [facility] Other 10-10-2021 15:15-0500 Body mass index (BMI) [Ratio] 58.24 kg/m2 Marcia Bessie Other [facility] Other 10-10-2021 15:15-0500 Body temperature 98.2 [degF] Marcia Bessie Other [facility] Other 10-10-2021 15:15-0500 Body weight 158.76 kg Marcia Bessie Other [facility] Other 12-15-2021 15:15-0500 Respiratory rate 18 /min Marcia La Other [facility] Other 10-10-2021 15:15-0500 SaO2% (BldA) [Mass fraction] 96 % Marcia La Other [facility] Other 08-31-2021 11:45-0400 Body height 165.1 cm Lili Ginty Other [facility] Other 08-31-2021 11:45-0400 Body mass index (BMI) [Ratio] 58.24 kg/m2 Lili Ginty Other [facility] Other 08-31-2021 11:45-0400 Body temperature 97.8 [degF] Lili Ginty Other [facility] Other 08-31-2021 11:45-0400 Body weight 158.76 kg Lili Ginty Other [facility] Other 08-31-2021 11:45-0400 SaO2% (BldA) [Mass fraction] 94 % Lili Ginty Other [facility] Other Encounters Encounter Date Encounter Type Care Provider Facility Start: 12-26-2023 End: 12-26-2023 ambulatory FRANK REIS Not Available Start: 12-01-2023 Refill Frank Vasques Work Phone: [facility] Comment on above: Major depressive dis order, recurrent, mild (HCC) (CMS/HCC); Major depressive disorder, recurrent episode, mild (HCC) (CMS/HCC) Start: 09-22-2023 End: 09-22-2023 ambulatory GER MYRICK Not Available Start: 09-08-2023 End: 09-08-2023 ambulatory ANGY MIKHAIL Not Available Start: 07-17-2023 End: 07-17-2023 ambulatory Octavia Keen Other [facility] Other Start: 07-17-2023 Office outpatient vi sit 15 minutes Octavia Keen [facility] Start: 02-22-2023 Encounter for genera l adult medical examination without abnormal findings DR FRANK REIS [facility] Start: 02-19-2023 End: 02-20-[address] FRANK REIS Facility:[facility] Start: 02-19-2023 End: 02-20-2023 Encounter for general adult medical examination without abnormal findings DR FRANK REIS Facility:[facility] Start: 02-04-2023 End: 02-04-2023 ambulatory Lili Borges Other [facility] Other Start: 02-04-2023 Office outpatient vi sit 25 minutes Lili Borges [facility] Start: 07-11-2022 End: 07-11-2022 ambulatory Lili Borges Other [facility] Other Start: 07-11-2022 Office outpatient vi sit 25 minutes Lili Borges [facility] Start: 03-05-2022 End: 03-05-[address] MAYRA GARCIA . Facility:[facility] Start: 10-10-2021 End: 10-10-2021 ambulatory Marcia La Other [facility] Other Start: 10-10-2021 Office outpatient vi sit 15 minutes Marcia Bessie [facility] Start: 08-31-2021 End: 08-31-2021 ambulatory Lili Ginty Other [facility] Other Start: 08-31-2021 Office outpatient vi sit 15 minutes Lili Ginty [facility] Start: 09-10-2018 Encounter for genera l adult medical examination without abnormal findings FRANK REIS [facility] Start: 09-10-2018 End: 09-11-2018 Patient encounter procedure MAYDA DAMIAN [facility] Start: 01-12-2018 End: 01-12-2018 Emergency department patient visit FRANK REIS [facility] Start: 12-29-2017 End: 12-29-2017 Emergency department patient visit FRANK REIS [facility] Procedures Date Procedure Procedure Detail Performing Clinician Start: 09-10-2018 Blood count complete automated FRANK DONOVANR Start: 09-10-2018 Comprehensive metabolic panel FRANK NADERER Start: 09-10-2018 Lipid panel FRANK WILLS [facility] Start: 09-10-2018 VITAMIN D 25 HYDROXY MA NELDA NADERER Start: 01-12-2018 Microscopic urinalysis FRANK DAVENPORTEREKrystal Start: 01-12-2018 , URINE FRANK N ADERER Start: 01-12-2018 UA W/REFLEX CULTURE LETI Chaudhary CHATO Plan of Treatment Date Care Activity Detail Author Start: 09-09-2024 End: 09-09-2024 Patient encounter procedure 09/09/2024 9:00 AM EST Office Visit [facility] [address] [place] [id number] Angy Elizondo PA [address] [place] [address] [facility] Start: 06-27-2023 Influenza vaccination Influenza Vacc ine (#1) [facility] Start: 2016 Screening for malign ant neoplasm of cervix [facility] Start: 2007 Screening for malign ant neoplasm of cervix Pap Smear [facility] Payers Date Payer Category Payer Managed Care O (unspecified) [employer] [id number] 2016-Present [address] [place] [phone] [facility] [id number] 1986 Unknown [id number] 1986 Unknown [id number] 1986 Unknown [id number] 1986 Unknown [id number] 1986 Unknown [id number] 1986 Unknown [id number] .1259 1986 Unknown [id number] [id number] .1259 1986 Unknown [id number] .1259 1958 [facility] [id number] 1958 Private Health Insurance [id number] Social History Date Type Detail Facility Unknown if ever smoked [facility] [employer] Other Start: 09-05-2023 Sex Assigned At N [facility] [employer] Other Start: 09-05-[address] [facility] Never smoked tobacco [facility] Start: 09-22-2023 Alcohol intake Current drinke r of alcohol (finding) [facility] Start: 09-05-2023 History of Social function [facility] How often to you hav e a drink containing alcohol? Monthly or less [facility] How many standard drinks containing alcohol do you have on a typical day? 1 or 2 [facility] How often do you hav e 6 or more drinks on 1 occasion? Never [facility] Start: 09-05-2023 Alcohol Comment Caffeine intak e: 1-2 cups per day [facility] Start: 1985 Sex Assigned At Not on file [facility] Evaluation note 07-17-2023 Note Date & Type Note Facility 07-17-2023 Evaluation note Encounter Date Diagnosis Assessment Notes Jun, Contact with and (suspected) exposure to covid-19 (ICD-10 - Z20.822) Discussed with patient COVID PCR is positive. Patient is on day 7 of symptoms. Discussed CDC guidelines of 5 days of quarantine, 5 days of wearing a mask. Should continue to wear a mask for the next 3 days. Discussed should notify any close contacts for exposure. Follow-up with PCP if not improving over the next week. Jun, Acute non-recurren t maxillary sinusitis (ICD-10 - J01.00) Discussed with patient symptoms likely remain viral at this time. Discussed antibiotics do not treat viral illnesses unfortunately. Discussed typical duration of viral URI is 7 to 12 days. Patient is advised to use medrol dose pack, continue claritin, mucinex D, flonase for symptomatic treatment. If symptoms or not gradually improving over the next 3-4 days, fill printed prescription for doxy and finish entire course. Follow-up with PCP if symptoms are not improved with 5 to 7 days of antibiotic. Patient verbalized understanding of treatment plan. [facility] Other Evaluation note 02-04-2023 Note Date & Type Note Facility 02-04-2023 Evaluation note Encounter Date Diagnosis Assessment Notes Jan, Contact with and (suspected) exposure to covid-19 (ICD-10 - Z20.822) Jan, Acute sinusitis, unspecified (ICD-10 - J01.90) Advise patient that rapid COVID/influenza A/B test and rapid strep test was negative in office today. Discussed diagnosis with patient today. Will treat as viral at this time based on physical exam and duration of symptoms. Advised patient viral syndromes last 7-10 days. If symptoms do not improve in the next 3-4 days patient may call UC and I will send antibiotic. Use Rx of Medrol Dosepak as directed. Encouraged supportive care as directed today. Push fluids/rest, nasal saline washes as directed, may use Tylenol or Motrin as needed for discomfort, OTC plain Mucinex. Patient to follow up with PCP or UC for any new or worsening symptoms. Immediate eval if SOB, wheezing, difficulty breathing, or other concerning symptoms. Patient verbalizes understanding and is agreeable to treatment plan. Jan, Sore throat (ICD-10 - J02.9) Jan, Other viral agents as the cause of diseases classified elsewhere (ICD-10 - B97.89) [email or web address] Other Evaluation note 07-11-2022 Note Date & Type Note Facility 07-11-2022 Evaluation note Encounter Date Diagnosis Assessment Notes Jun, Contact with and (suspected) exposure to other viral communicable diseases (ICD-10 - Z20.828) Jun, Bronchitis (ICD-10 - J40) Advised patient that rapid COVID test is negative. Discussed diagnosis with patient in detail. Advised patient that cough may linger for 3 weeks. Will treat today with antibiotic. Reviewed allergies and recent antibiotic use. Advised to take medications as prescribed, reviewed side effects of steroid, take with food and plenty of water, finish entire course. Encouraged supportive care as directed, push fluids and rest, may use Tylenol as needed for fever/discomfo rt, cool mist humidifier. May use [place] as needed for cough, do not take any other OTCs while using [place]. Patient to follow up with PCP in 2-3 days. Immediate eval if SOB, difficulty breathing, chest pain, dizziness, or other concerning symptoms. Patient verbalizes understanding and is agreeable to treatment plan [email or web address] Other Evaluation note 10-10-2021 Note Date & Type Note Facility 10-10-2021 Evaluation note Encounter Date Diagnosis Assessment Notes Sep, Contact with and (suspected) exposure to other viral communicable diseases (ICD-10 - Z20.828) Sep, Acute sinusitis, recurrence not specified, unspecified location (ICD-10 - J01.90) Drink plenty fluids, get plenty of rest. Use the Flonase inhaler as prescribed until your symptoms improve. Take the prednisone as prescribed until gone. Tylenol or Motrin as needed for aches pains or fevers. Follow-up with your family physician if no improvement in 2 to 3 days. Sep, Other Additional time spent conducting pre-visit phone call, screening for symptoms, instructions on social distancing, application and removal of PPE, and cleaning of examination room, equipment and supplies was preformed. Patient education given for testing methodology and results. Patient care instructions given in writting by [facility] document. [email or web address] Other Evaluation note 08-31-2021 Note Date & Type Note Facility 08-31-2021 Evaluation note Encounter Date Diagnosis Assessment Notes Aug, Contact with and (suspected) exposure to other viral communicable diseases (ICD-10 - Z20.828) Aug, Mouth sores (ICD-10 - K13.79) Advised patient that rapid COVID antigen test and strep test was negative today. No signs of bacterial infection present today on exam. Will send in rx for magic mouthwash. Advised to use as directed. Supportive care as directed, increase fluids and rest, Tylenol/Motrin as directed, OTC cough/cold remedies as directed on packaging, cool mist humidifier, throat lozenges. Discussed infection control practices such as good hand washing and mask wearing. Patient to follow up with PCP if sx persist or worsen despite treatment. Immediate eval for warning s/sx as discussed. Patient verbalizes understanding and is agreeable to treatment plan Aug, Sore throat (ICD-10 - J02.9) Aug, Other Additional time spent conducting pre-visit phone call, screening for symptoms, instructions on social distancing, application and removal of PPE, and cleaning of examination room, equipment and supplies was preformed. Patient education given for testing methodology and results. Patient care instructions given in writting by [facility] document [email or web address] Other Evaluation note Note Date & Type Note Facility Evaluation note Diagnosis Major depressive disorder, recurrent, mild (HCC) (CMS/HCC) Major depressive disorder, recurrent episode, mild Major depressive disorder, recurrent episode, mild (HCC) (CMS/HCC) Major depressive disorder, recurrent episode, mild documented in this encounter [facility] History general Narrative - Reported Note Date & Type Note Facility History general Narrative - Reported Type Medical History HTN (hypertension) Medical History migraine headaches Medical History anxiety Medical History insomnia Surgical History cholecystectomy Surgical History tonsillectomy Surgical History [facility] Hospitalization History See Above Hospitalization History kidney stones 06/2017 [facility] Other Summary Purpose Family History No Family History Records FoundNo Family History Records FoundNo Family History Records Found Advance Directives No Advanced Directives Records FoundNo Advanced Directives Records FoundNo Advanced Directives Records Found Additional Source Comments INFORMATION SOURCE (unrecogn ized section and content) DATE CREATED AUTHOR 11/16/2018 [facility] DATE CREATED AUTHOR AUTHOR'S ORGANIZ ATION 02/22/2023 [facility] DATE CREATED AUTHOR AUTHOR'S ORGANIZ ATION 12/28/2023 [facility] EPIC REASON FOR VISIT (unrecogniz ed section and content) Reason Comments Med Refill Care Teams (unrecognized sec tion and content) [employer] Relationship Specialty Start Date End Date Frank Reis MD PCP - General Family Medicine 08/27/23 FOR RECORDS PERTAINING TO PATIENTS WHO ARE OR HAVE BEEN ENROLLED IN A CHEMICAL DEPENDENCY/SUBSTANCEABUSE PROGRAM, SOME INFORMATION MAY BE OMITTED. This clinical summary was aggregated from multiple sources. Caution should be exercised in using it in the provision of clinical care. This summary normalizes information from multiple sources, and as a consequence, information in this document may materially change the coding, format and clinical context of patient data. In addition, data may be omitted in some cases. CLINICAL DECISIONS SHOULD BE BASED ON THE PRIMARY CLINICAL RECORDS. [employer] [facility]. provides no warranty or guarantee of the accuracy or completeness of information in this document.
--- NOTE | 2024-01-08 01:05 | ED.GENADUL1 ---
HPI - General Adult General Chief complaint: Abdominal Pain Stated complaint: RT FLANK PAIN Time Seen by Provider: 01/08/24 00:50 Source: patient Mode of arrival: walk-in Limitations: no limitations History of Present Illness HPI narrative: Patient developed right torso pain several weeks ago without injury or known inciting event. She never developed any nausea, vomiting, GI or symptoms. No worsening of the pain with eating, drinking, BMs or urination. Tonight/this morning the pain worsened. No relief with tylenol or motrin at home. Related Data Home Medications Medication Instructions Recorded Confirmed clonazepam 1 mg tablet 1 mg PO Q8H PRN anxiety 01/08/24 01/08/24 lamotrigine 150 mg tablet 150 mg PO DAILY 01/08/24 01/08/24 losartan 100 1 tab PO DAILY 01/08/24 01/08/24 mg-hydrochlorothiazide 25 mg tablet sumatriptan succinate 25 mg tablet 25 mg PO Q2H PRN migraine headache 01/08/24 01/08/24 venlafaxine 225 mg tablet,extended 225 mg PO DAILY 01/08/24 01/08/24 release 24 hr verapamil 180 mg tablet,extended mg PO DAILY 01/08/24 release Previous Rx's Medication Instructions Recorded methocarbamol 750 mg tablet 750 mg PO Q6H PRN pain #30 tabs 01/08/24 nabumetone 750 mg tablet 750 mg PO BID PRN pain #14 tabs 01/08/24 Allergies Allergy/AdvReac Type Severity Reaction Status Date / Time amoxicillin Allergy Unknown Verified 01/08/24 00:47 Penicillins Allergy Unknown Verified 01/08/24 00:47 Sulfa (Sulfonamide Allergy Unknown Verified 01/08/24 00:47 Antibiotics) PFSH PFS Social History Smoking status: Never smoker Exam Narrative Exam Narrative: Nurses notes and vital signs reviewed and patient is not hypoxic. Afebrile General: Well-appearing and in no apparent distress. Moving easily and smiling when I walked in the room. Skin: Warm, dry, no pallor noted. No rash to right torso. Eye: Pupils are equal, round and EOMI. No scleral icterus. Ears, Nose, Mouth, and Throat: Oral mucosa is moist Cardiovascular: Regular Rate and Rhythm without murmur, gallop or rub. Respiratory: No accessory muscle use or respiratory distress. Lungs are clear to auscultation, no wheezing, rales or rhonchi Chest Wall: no tenderness, crepitus or subcutaneous emphysema Back: No CVA tenderness. No right flank tenderness. No swelling, erythema, palpable abscess or skin rash to right flank. GI: Abdomen is soft, non-distended. Normal bowel sounds. Focal tenderness to palpation along the lateral right torso at the upper abdomen just beyond the lower portion of the right rib cage. There is no erythema, rash, swelling, palpable mass or abscess associated with this area. No rebound, guarding, or rigidity noted. Neurological: A&O x4. No cranial nerve dysfunction observed. No truncal ataxia. Moves all extremities. Sensation intact. Psychiatric: Cooperative and interactive. Normal mood and affect. Constitutional Vital Signs, click to edit/add: Last Vital Signs Temp 98.0 F 01/08/24 00:44 Pulse 100 H 01/08/24 00:44 Resp 18 01/08/24 00:44 BP 160/100 H 01/08/24 00:44 Pulse Ox 99 01/08/24 00:44 O2 Del Method Room Air 01/08/24 00:44 Course Vital Signs Vital signs: Vital Signs Temperature 98.0 F 01/08/24 00:44 Pulse Rate 100 H 01/08/24 00:44 Respiratory Rate 18 01/08/24 00:44 Blood Pressure 160/100 H 01/08/24 00:44 Pulse Oximetry 99 01/08/24 00:44 Oxygen Delivery Method Room Air 01/08/24 00:44 Temperature 98.0 F 01/08/24 00:44 Pulse Rate 100 H 01/08/24 00:44 Respiratory Rate 18 01/08/24 00:44 Blood Pressure 160/100 H 01/08/24 00:44 Pulse Oximetry 99 01/08/24 00:44 Oxygen Delivery Method Room Air 01/08/24 00:44 Medical Decision Making MDM Narrative Medical decision making narrative: Patient's exam consistent with muscle strain along the right torso. She does not have a gallbladder, her symptoms are not consistent with kidney stone, colitis, or GI pathology. No indication for imaging at this time. Patient given IM Solumedrol and IM Toradol in ED and discharged home with prescriptions for Relafen and Robaxin. She can see her PCP for follow up or return to the ED if she worsens. Discharge Plan Discharge Stand Alone Forms: Portal Instructions Chief Complaint: Abdominal Pain Clinical Impression: Muscle strain, Pain of truncal structure Patient Disposition: Home, Self-Care Time of Disposition Decision: 01:07 Prescriptions / Home Meds: New nabumetone 750 mg tablet 750 mg PO BID PRN (Reason: pain) Qty: 14 0RF methocarbamol 750 mg tablet 750 mg PO Q6H PRN (Reason: pain) Qty: 30 0RF No Action lamotrigine 150 mg tablet 150 mg PO DAILY sumatriptan succinate 25 mg tablet 25 mg PO Q2H PRN (Reason: migraine headache) clonazepam 1 mg tablet 1 mg PO Q8H PRN (Reason: anxiety) verapamil 180 mg tablet extended release PO DAILY losartan-hydrochlorothiazide 100-25 mg tablet 1 tab PO DAILY venlafaxine 225 mg tablet extended release 24hr 225 mg PO DAILY Instructions: Muscle Strain (ED), Musculoskeletal Pain (ED) Referrals: Frank Nunez MD [Primary Care Provider] - 1 week
[2024-01-08] MEDS: METHYLPREDNISOLONE SOD SUCC PF 125 MG/2 ML VIAL IM (01:50)
[2024-01-08] MEDS: KETOROLAC TROMETHAMINE 60 MG/2 ML VIAL IM (01:50)
== END 2024-01-08 01:58 | disposition home or self-care (01) ==
PROVIDERS: Emergency Provider Emergency Medicine; PCP Family Medicine
DX: S39.011A Strain of muscle, fascia and tendon of abdomen, initial encounter (principal); R10.9 Unspecified abdominal pain; Z79.899 Other long term (current) drug therapy
CPT/HCPCS: 96372; 99284; J2930

== ENCOUNTER 2024-01-21 12:55 | Emergency (ER) | payer OTHER, SELFPAY ==
--- OUTSIDE RECORDS SUMMARY | 2024-01-21 13:22 | XMS_ITS | CCD ---
Author Organization [facility] Care Team Providers Care Work Study Student Name Role Phone FRANK REIS Primary Care UnavailHARPER Murphy Attending Unavailable FRANK REIS Primary Care Unavailabl HARPER Winston Attending Unavailable MAYDA DAMIAN Referring Unavailable MAYDA DAMIAN Primary Care Unavailable Lili Luo Unavailable Marcia La Unavailable Lili Borges Unavailable DR FRANK REIS Admitting Unavailable CHATO, DR FRANK Garcia Primary Care Unavailable CHATO, DR FRANK Garcia Consulting Unavailable CHATO, DR FRANK Garcia Attending Unavailable RADHA ., DR NUNEZ Attending Unavailjunior e CHATO, DR FRANK Garcia Primary Care Unavailable KARASIK ., DR NUNEZ Admitting Unavailabl e KARASIK ., DR NUNEZ Consulting Unavailabl e Octavia Keen Unavailable Frank Reis MD Primary Care Provider [phone] FRANK REIS Attending Unavailable GER MYRICK Attending Unavailable ANGY ELIZONDO Attending Unavailable Allergies Allergy Classification Reported Allergen(s) Allergy Type Date of Onset Reaction(s) Facility (6 sources) Amoxicillin Drug Allergy 10-23-20 16 Rash [facility] (5 sources) Sulf-10 Drug allergy rash, nausea [facility] Other (1 source) Amoxicillin Drug Allergy 02-17-20 16 [facility] (1 source) Penicillin Drug Allergy [facility] (1 source) Sulfonamides (Antibiotic) Drug allergy (disorder) 02-17-20 16 [facility] (1 source) Penicillins Drug Intolerance 12-30-19 18 Rash [facility] (1 source) Sulfonamides (Antibiotic) Drug Intolerance [...] mg oral tablet (6 sources) Corticosteroid Start: methylPREDNISolone 4 MG take half with breakfast, half with dinner Orally as directed for 6 days Jun, Active Start: 07-11-2022 methylPREDNISo lone 4 MG as directed Orally for daily dose take half with breakfast, half with dinner for 6 days Jan, Not-Taking Metoprolol (3 sources) beta-Adrenergic Charbel Metoprolol Succinate Active predniSONE 20 mg oral tablet (1 source) Start: take 1 tablet by mouth every twelve hours predniSONE 20 MG 1 tablet Orally bid for 5 day(s) Sep, Active Semaglutide-Weight Management (Wegovy) 0.25 MG/0.5ML solution auto-injector (1 source) Start: 023 inject 0.25 mg by subcutaneous injection every week Semaglutide-Weight Management (Wegovy) 0.25 MG/0.5ML solution auto-injector Indications: Morbid obesity with BMI of 60.0-69.9, adult (CMS/[facility]) Inject 0.25 mg under the skin 1 [...] Drug Class(es) Dates Sig (Normalized) Sig (Original) [id number] actuat albuterol 0.09 mg/actuat metered dose [...] 1.5 mg/ml oral solution (8 sources) Uncompetitive I-wmsdmd-G-aspartat e Receptor Antagonist, Sigma-1 Agonist Start: 07-11-2022 take 10 mL by mouth every eight hours [place] DM 7.5-7.5 MG/5ML 10 mL Orally every 8 hours for 5 days Jun, Not-Taking Start: 09-01-2020 [place] DM 7.5- 7.5 MG/5ML 10 ml Orally [...] (COVID-19) RNA MOHAN+probe Ql (Unsp spec) Positive Coin [facility] [employer] Other COVID/FLU RT-PCR Negative [facility] [employer] Other CBC AUTO DIFFon 02-19-2023 BASO # 0.0 103/ul Normal 0.0-0.1 [facility] Comment on above: Performed By: #### C BC #### [facility] [address] [place] [address] Dr. Maxi Chen Basophils/100 WBC (Bld) 0.2 % Normal 0.2-2.0 [facility] Comment on above: Performed By: #### C BC #### [facility] [address] [address] [address] Maxi Chen EO # 0.1 103/ul Normal 0.0-0.7 [facility] Comment on above: Performed By: #### C BC #### [facility] [address] [address] [address] Maxi Chen Eosinophils/100 WBC (Bld) 1.7 % Normal 0.9-7.0 [facility] Comment on above: Performed By: #### C BC #### [facility] [address] [address] [address] Maxi Chen Erythrocyte distribution width (RBC) [Ratio] 14.5 % Normal 11.0-15.0 [facility] Comment on above: Performed By: #### C BC #### [facility] [address] [place] [address] Dr. Maxi Chen Hematocrit (Bld) [Volume fraction] 41.0 % Normal 36.0-48.0 [facility] Comment on above: Performed By: #### C BC #### [facility] [address] [address] [address] Maxi Chen Hemoglobin (Bld) [Mass/Vol] 13.3 g/dL Normal 12.0-16.0 [facility] Comment on above: Performed By: #### C BC #### [facility] [address] [address] [address] Maxi Chen IG # 0.02 10e3/ul Normal 0.00-0.03 [facility] Comment on above: Performed By: #### C BC #### [facility] [address] [place] [address] Dr. Maxi Chen IG % 0.2 % Normal 0.0-0.5 [facility] Comment on above: Performed By: #### C BC #### [facility] [address] [place] [address] Dr. Maxi Chen LYMPH # 2.2 103/ul Normal 1.2-3.8 [facility] Comment on above: Performed By: #### C BC #### [facility] [address] [place] [address] Dr. Maxi Chen Lymphocytes/100 WBC (Bld) 26.3 % Normal 20.5-60.0 [facility] Comment on above: Performed By: #### C BC #### [facility] [address] [place] [address] Dr. Maxi Chen MANUAL DIFF REQ NO Normal [facility] Comment on above: Performed By: #### C BC #### [facility] [address] [place] [address] Dr. Maxi Chen MCH (RBC) [Entitic mass] 28.1 pg Normal 26.7-34.0 [facility] Comment on above: Performed By: #### C BC #### [facility] [address] [place] [address] Dr. Maxi Chen MCHC (RBC) [Mass/Vol] 32.4 g/dL Normal 29.9-35.2 [facility] Comment on above: Performed By: #### C BC #### [facility] [address] [address] [address] Maxi Chen MCV (RBC) [Entitic vol] 86.7 fL Normal 81.0-99.0 [facility] Comment on above: Performed By: #### C BC #### [facility] [address] [address] [address] Maxi Chen MONO # 0.4 103/ul Normal 0.3-0.8 [facility] Comment on above: Performed By: #### C BC #### [facility] [address] [address] [address] Maxi Chen Monocytes/100 WBC (Bld) 5.3 % Normal 1.7-12.0 [facility] Comment on above: Performed By: #### C BC #### [facility] [address] [place] [address] Dr. Maxi Chen NEUT # 5.6 103/ul Normal 1.4-6.5 [facility] Comment on above: Performed By: #### C BC #### [facility] [address] [place] [address] Dr. Maxi Chen Neutrophils/100 WBC (Bld) 66.3 % Normal 43.0-75.0 [facility] Comment on above: Performed By: #### C BC #### [facility] [address] [place] [address] Dr. Maxi Chen Platelet mean volume (Bld) [Entitic vol] 10.1 fL Normal 9.5-13.5 [facility] Comment on above: Performed By: #### C BC #### [facility] [address] [place] [address] Dr. Maxi Chen PLT 343 103/ul Normal 150-450 [facility] Comment on above: Performed By: #### C BC #### [facility] [address] [place] [address] Dr. Maxi Chen RBC 4.73 106/ul Normal 4.20-5.40 [facility] Comment on above: Performed By: #### C BC #### [facility] [address] [address] [address] Maxi Chen WBC 8.4 103/ul Normal 4.0-11.0 [facility] Comment on above: Performed By: #### C BC #### [facility] [address] [address] [address] Maxi Chen GLYCOHEMOGLOBIN A1Con 2022 ADA RECOMMENDATION SEE BELOW Normal [facility] Comment on above: Result Comment: ADA RECOMMENDED LIMIT 4.0 - 6.0 ADA THERAPEUTIC TARGET < 7.0 ACTION SUGGESTED > 7.0 Performed By: #### A 1C #### [facility] [address] [place] [address] Dr. Maxi Chen Glucose [Mass/Vol] 117 mg/dL Normal [facility] Comment on above: Performed By: #### A 1C #### [facility] [address] [place] [address] Dr. Maxi Chen HbA1c (Bld) [Mass fraction] 5.7 % Normal 4.5-6.2 [facility] Comment on above: Performed By: #### A 1C #### [facility] [address] [place] [address] Dr. Maxi Chen LIPID PROFILEon 02-19-2023 CHOL-HDL RATIO NORM SEE BELOW Normal [facility] Comment on above: Result Comment: 3.3 - 4.4 LOW RISK 4.4 - 7.1 AVERAGE RISK 7.1 - 11.0 MODERATE RISK >11.0 HIGH RISK Performed By: #### T SH, BMP, LIVER, LIPID #### [facility] [address] [place] [address] Dr. Maxi Chen Cholesterol [Mass/Vol] 220 mg/dL Critically high <=200 [facility] Comment on above: Performed By: #### T SH, BMP, LIVER, LIPID #### [facility] [address] [address] [address] Maxi Chen Cholesterol in HDL [Mass/Vol] 42 mg/dL Normal 40-60 [facility] Comment on above: Performed By: #### T SH, BMP, LIVER, LIPID #### [facility] [address] [place] [address] Dr. Maxi Chen Cholesterol in LDL [Mass/Vol] 135.0 mg/dL Normal [facility] Comment on above: Performed By: #### T SH, BMP, LIVER, LIPID #### [facility] [address] [place] [address] Dr. Maxi Chen Cholesterol.total/Ch olesterol in HDL [Mass ratio] 5.2 {ratio} Normal [facility] Comment on above: Performed By: #### T SH, BMP, LIVER, LIPID #### [facility] [address] [place] [address] Dr. Maxi Chen HDL NORMAL > or = 60 mg/dl - LOW CARDIOVASCULAR RISK <40 mg/dl - HIGH CARDIOVASCULAR RISK Normal [facility] Comment on above: Performed By: #### T SH, BMP, LIVER, LIPID #### [facility] [address] [place] [address] Dr. Maxi Chen LDL CALC NORMAL SEE BELOW Normal [facility] Comment on above: Result Comment: <100 mg/dl OPTIMAL 100 - 129 mg/dl NEAR OR ABOVE OPTIMAL 130 - 159 mg/dl BORDERLINE HIGH 160 - 189 mg/dl HIGH >190 mg/dl VERY HIGH Performed By: #### T BRYSON, BMP, LIVER, LIPID #### [facility] [address] [place] [address] Dr. Maxi Chen Triglyceride [Mass/Vol] 215 mg/dL Critically high <=150 [facility] Comment on above: Performed By: #### T BRYSON, BMP, LIVER, LIPID #### [facility] [address] [place] [address] Dr. Maxi Chen VLDL CALC 43.0 mg/dL Normal [facility] Comment on above: Performed By: #### T SH, BMP, LIVER, LIPID #### [facility] [address] [place] [address] Dr. Maxi Chen LIVER PROFILEon 02-19-2023 Albumin [Mass/Vol] 3.3 g/dL Critically low 3.4-5.0 [facility] Comment on above: Performed By: #### T SH, BMP, LIVER, LIPID #### [facility] [address] [address] [address] Maxi Chen Albumin/Globulin [Mass ratio] 0.8 {ratio} Normal [facility] Comment on above: Performed By: #### T SH, BMP, LIVER, LIPID #### [facility] [address] [place] [address] Dr. Maxi Chen ALP [Catalytic activity/Vol] 58 U/L Normal 46-116 [facility] Comment on above: Performed By: #### T SH, BMP, LIVER, LIPID #### [facility] [address] [place] [address] Dr. Maxi Chen ALT [Catalytic activity/Vol] 37 U/L Normal 14-59 [facility] Comment on above: Performed By: #### T SH, BMP, LIVER, LIPID #### [facility] [address] [place] [address] Dr. Maxi Chen AST [Catalytic activity/Vol] 18 U/L Normal 15-37 [facility] Comment on above: Performed By: #### T SH, BMP, LIVER, LIPID #### [facility] [address] [place] [address] Dr. Maxi Chen BILI, CONJUGATED 0.1 mg/dL Normal 0.0-0.2 [facility] Comment on above: Performed By: #### T SH, BMP, LIVER, LIPID #### [facility] [address] [place] [address] Dr. Maxi Chen Bilirubin [Mass/Vol] 0.4 mg/dL Normal 0.2-1.0 [facility] Comment on above: Performed By: #### T SH, BMP, LIVER, LIPID #### [facility] [address] [place] [address] Dr. Maxi Chen Globulin (S) [Mass/Vol] 4.2 g/dL Normal [facility] Comment on above: Performed By: #### T SH, BMP, LIVER, LIPID #### [facility] [address] [place] [address] Dr. Maxi Chen Protein [Mass/Vol] 7.5 g/dL Normal 6.4-8.2 [facility] Comment on above: Performed By: #### T SH, BMP, LIVER, LIPID #### [facility] [address] [address] [address] Maxi Chen PROF CHEM 8 (BAS METB)on Anion gap [Moles/Vol] 11.8 mmol/L Normal [facility] Comment on above: Performed By: #### T SH, BMP, LIVER, LIPID #### [facility] [address] [address] [address] Maxi Chen Calcium [Mass/Vol] 9.1 mg/dL Normal 8.5-10.1 [facility] Comment on above: Performed By: #### T SH, BMP, LIVER, LIPID #### [facility] [address] [place] [address] Dr. Maxi Chen Chloride [Moles/Vol] 102 mmol/L Normal 98-107 [facility] Comment on above: Performed By: #### T SH, BMP, LIVER, LIPID #### [facility] [address] [place] [address] Dr. Maxi Chen CO2 [Moles/Vol] 30.5 mmol/L Normal 21.0-32.0 [facility] Comment on above: Performed By: #### T SH, BMP, LIVER, LIPID #### [facility] [address] [place] [address] Dr. Maxi Chen Creatinine [Mass/Vol] 0.76 mg/dL Normal 0.55-1.02 [facility] Comment on above: Performed By: #### T SH, BMP, LIVER, LIPID #### [facility] [address] [place] [address] Dr. Maxi Chen EGFR-AF WALLISIAN >60 Normal >=60 [facility] Comment on above: Performed By: #### T SH, BMP, LIVER, LIPID #### [facility] [address] [place] [address] Dr. Maxi Chen EGFR-NON AF WALLISIAN >60 Normal >=60 [facility] Comment on above: Performed By: #### T SH, BMP, LIVER, LIPID #### [facility] [address] [address] [address] Maxi Chen Glucose [Mass/Vol] 106 mg/dL Normal 74-106 [facility] Comment on above: Performed By: #### T BRYSON, BMP, LIVER, LIPID #### [facility] [address] [address] [address] Maxi Chen Potassium [Moles/Vol] 3.3 mmol/L Critically low 3.5-5.1 [facility] Comment on above: Performed By: #### T SH, BMP, LIVER, LIPID #### [facility] [address] [address] [address] Maxi Chen Sodium [Moles/Vol] 141 mmol/L Normal 136-145 [facility] Comment on above: Performed By: #### T BRYSON, BMP, LIVER, LIPID #### [facility] [address] [address] [address] Maxi Chen Urea nitrogen [Mass/Vol] 5.0 mg/dL Critically low 7.0-18.0 [facility] Comment on above: Performed By: #### T BRYSON, BMP, LIVER, LIPID #### [facility] [address] [address] [address] Maxi Chen Urea nitrogen/Creatinine [Mass ratio] 6.6 mg/mg Normal [facility] Comment on above: Performed By: #### T BRYSON, BMP, LIVER, LIPID #### [facility] [address] [address] [address] Maxi Chen TSHon 02-19-2023 TSH 1.302 uIU/mL Normal 0.358-3.740 [facility] Comment on above: Performed By: #### T BRYSON, BMP, LIVER, LIPID #### [facility] [address] [address] [address] Maxi Chen COVID + FLU Quick Testingon 02-04-2023 SARS-CoV-2 (COVID-19) RNA MOHAN+probe Ql (Unsp spec) Negative [facility] Other COVID + FLU Quick Testing Negative [facility] Other Quick Strepon 02-04-2023 S. pyogenes Org specific cx Ql (Throat) Negative Coin [facility] [employer] Other Quick Strep [employer] Other COVID Quick Testingon 2021 Result Negative [facility] [employer] Other CHLAMYDIA/GONOCOCCUS MOHAN (SW AB/URINE/PAPon 03-06-2022 Chlamydia trachomatis, MOHAN Negative Normal Negative [facility] Comment on above: Performed By: #### C T/NGNA #### [facility] [address] [address] [address] Maxi Chen Neisseria gonorrhoeae, MOHAN Negative Normal Negative [facility] Comment on above: Performed By: #### C T/NGNA #### [facility] [address] [place] [address] Dr. Maxi Chen VAGINITIS/VAGINOSIS DNA PROB Evert 03-06-2022 Maye species Negative Normal Negative [facility] Comment on above: Performed By: #### V AGINT #### [facility] [address] [address] [address] Maxi Chen Gardnerella vaginalis Negative Normal Negative [facility] Comment on above: Performed By: #### V AGINT #### [facility] [address] [place] [address] Dr. Maxi Chen Trichomonas vaginalis Negative Normal Negative [facility] Comment on above: Performed By: #### V AGINT #### [facility] [address] [place] [address] Dr. Maxi Chen CBCon 09-10-2018 Erythrocyte distribution width Ratio (RBC) 14.3 % Normal 11.8-14.4 [facility] Comment on above: Performed By: #### C BC, CP, LIPR, VD25 #### [employer] [facility] [place], [place] [id number] Hematocrit Volume Fraction (Bld) 42.8 % Normal 36.3-47.1 [facility] Comment on above: Performed By: #### C BC, CP, LIPR, VD25 #### [address] [address] Hemoglobin mass conc (Bld) 13.5 g/dL Normal 11.9-15.1 [facility] Comment on above: Performed By: #### C BC, CP, LIPR, VD25 #### [address] [address] MCH Entitic mass (RBC) 27.3 pg Normal 25.2-33.5 [facility] Comment on above: Performed By: #### C BC, CP, LIPR, VD25 #### [address] [address] MCHC mass conc (RBC) 31.5 g/dL Normal 28.4-34.8 [facility] Comment on above: Performed By: #### C BC, CP, LIPR, VD25 #### [address] [address] MCV Entitic volume (RBC) 86.5 fL Normal 82.6-102.9 [facility] Comment on above: Performed By: #### C BC, CP, LIPR, VD25 #### [address] [address] NRBC Automated 0.0 per 100 WBC Normal 0.0 [facility] Comment on above: Performed By: #### C BC, CP, LIPR, VD25 #### [facility] [address] [place] [address] Platelet mean volume Entitic volume (Bld) 11.4 fL Normal 8.1-13.5 [facility] Comment on above: Performed By: #### C BC, CP, LIPR, VD25 #### [address] [address] Platelets #/vol (Bld) 360 10*3/uL Normal 138-453 [facility] Comment on above: Performed By: #### C BC, CP, LIPR, VD25 #### [facility] [place] [address] RBC #/vol (Bld) 4.95 10*6/uL Normal 3.95-5.11 [facility] Comment on above: Performed By: #### C BC, CP, LIPR, VD25 #### [facility] [address] [place] [address] WBC #/vol (Bld) 10.0 10*3/uL Normal 3.5-11.3 [facility] Comment on above: Performed By: #### C BC, CP, LIPR, VD25 #### [facility] [address] [place] [address] Comp Metabolic Profon 2017 (cont.) Normal [facility] Comment on above: Result Comment: Aver age GFR for 30-39 years old: 107 mL/min/1.73sq m Chronic Kidney Disease: <60 mL/min/1.73sq m Kidney failure: <15 mL/min/1.73sq m eGFR calculated using average adult body mass. Additional eGFR calculator available at: http://[email or web address]_crcl_[email or web address] Performed By: #### C BC, CP, LIPR, VD25 #### [facility] [address] [place] [address] Albumin mass conc 4.2 g/dL Normal 3.5-5.2 [facility] Comment on above: Performed By: #### C BC, CP, LIPR, VD25 #### [facility] [address] [place] [address] Albumin/Globulin mass ratio 1.2 {ratio} Normal 1.0-2.5 [facility] Comment on above: Performed By: #### C BC, CP, LIPR, VD25 #### [facility] [address] [place] [address] Alkaline Phos 63 U/L Normal 35-104 [facility] Comment on above: Performed By: #### C BC, CP, LIPR, VD25 #### [facility] [address] [place] [address] ALT enzyme act/vol 21 U/L Normal 5-33 [facility] Comment on above: Performed By: #### C BC, CP, LIPR, VD25 #### [facility] [address] [place] [address] Anion gap molar conc 25 mmol/L High 9-17 [facility] Comment on above: Performed By: #### C BC, CP, LIPR, VD25 #### [facility] [address] [place] [address] AST enzyme act/vol 18 U/L Normal <32 [facility] Comment on above: Performed By: #### C BC, CP, LIPR, VD25 #### [facility] [address] [place] [address] Bilirubin Ql (U) 0.29 mg/dL Low 0.3-1.2 [facility] Comment on above: Performed By: #### C BC, CP, LIPR, VD25 #### [facility] [address] [place] [address] Calcium mass conc 9.3 mg/dL Normal 8.6-10.4 [facility] Comment on above: Performed By: #### C BC, CP, LIPR, VD25 #### [facility] [address] [place] [address] Chloride molar conc 98 mmol/L Normal 98-107 [facility] Comment on above: Performed By: #### C BC, CP, LIPR, VD25 #### [facility] [address] [place] [address] CO2 molar conc 21 mmol/L Normal 20-31 [facility] Comment on above: Performed By: #### C BC, CP, LIPR, VD25 #### [facility] [address] [place] [address] Creatinine mass conc 0.52 mg/dL Normal 0.50-0.90 [facility] Comment on above: Performed By: #### C BC, CP, LIPR, VD25 #### [facility] [address] [place] [address] GFR, Amer >60 Normal >60 [facility] Comment on above: Performed By: #### C BC, CP, LIPR, VD25 #### [facility] [address] [place] [address] GFR,non Amer >60 Normal >60 [facility] Comment on above: Performed By: #### C BC, CP, LIPR, VD25 #### [facility] [address] [place] [address] Glucose mass conc 93 mg/dL Normal 70-99 [facility] Comment on above: Performed By: #### C BC, CP, LIPR, VD25 #### [facility] [address] [place] [address] Potassium molar conc 3.8 mmol/L Normal 3.7-5.3 [facility] Comment on above: Performed By: #### C BC, CP, LIPR, VD25 #### [facility] [address] [place] [id number] Protein mass conc 7.6 g/dL Normal 6.4-8.3 [facility] Comment on above: Performed By: #### C BC, CP, LIPR, VD25 #### [facility] [address] [place] [address] Sodium molar conc 144 mmol/L Normal 135-144 [facility] Comment on above: Performed By: #### C BC, CP, LIPR, VD25 #### [facility] [address] [place] [address] 14204 Urea nitrogen mass conc 9 mg/dL Normal 6-20 [facility] Comment on above: Performed By: #### C BC, CP, LIPR, VD25 #### [facility] [address] [place] [address]90 BUN/CRE Ratio NOT REPORTED Normal -20 [facility] Comment on above: Performed By: #### C BC, CP, LIPR, VD25 #### [facility] [address] [place] [address] Staging: NOT REPORTED Normal [facility] Comment on above: Performed By: #### C BC, CP, LIPR, VD25 #### [facility] [address] [place] [address]113 Lipid Profileon 09-10-2018 Cholesterol in HDL mass conc 47 mg/dL Normal >40 [facility] Comment on above: Result Comment: HDL Guidelines: <40 Undesirable 40-59 Borderline >59 Desirable Performed By: #### C BC, CP, LIPR, VD25 #### [address] [address] Cholesterol in LDL mass conc 134 mg/dL High 0-130 [facility] Comment on above: Result Comment: LDL Guidelines: <100 Desirable 100-129 Near to/above Desirable 130-159 Borderline >159 Undesirable Direct (measured) LDL and calculated LDL are not interchangeable tests. Performed By: #### C BC, CP, LIPR, VD25 #### [facility] [address] [place] [address] Cholesterol mass conc 227 mg/dL High <200 [facility] Comment on above: Result Comment: Cholesterol Guidelines: <200 Desirable 200-240 Borderline >240 Undesirable Performed By: #### C BC, CP, LIPR, VD25 #### [address] [address] Cholesterol.total/Ch olesterol in HDL mass ratio 4.8 {ratio} Normal <5 [facility] Comment on above: Performed By: #### C BC, CP, LIPR, VD25 #### [facility] [address] [place] [address] Triglyceride mass conc 229 mg/dL High <150 [facility] Comment on above: Result Comment: Triglyceride Guidelines: <150 Desirable 150-199 Borderline 200-499 High >499 Very high Based on AHA Guidelines for fasting triglyceride, July 2012. Performed By: #### C BC, CP, LIPR, VD25 #### [facility] [address] [place] [address] Cholesterol in VLDL mass conc NOT REPORTED Normal -30 [facility] Comment on above: Performed By: #### C BC, CP, LIPR, VD25 #### [address] [address] Vitamin D 25 OHon 09-10-2018 Vitamin D 25 OH 12.1 ng/mL Low 30.0-100.0 [facility] Comment on above: Result Comment: Reference Range: Vitamin D status Range Deficiency <20 ng/mL Mild Deficiency 20-30 ng/mL Sufficiency 30-100 ng/mL Toxicity >100 ng/mL Performed By: #### C BC, CP, LIPR, VD25 #### [address] [address] HCG, ,Urineon 01-12 HCG.beta subunit ( test) Ql (U) Negative Normal NEG [facility] Comment on above: Result Comment: Spec imens with hCG levels near the threshold of the test (25 mIU/mL) may give a negative or indeterminate result. In such cases, another test should be performed with a new specimen in 48-72 hours. If early is suspected clinically in this setting, correlation with quantitative serum b-hCG level is suggested. Performed at [facility], [address] [place] [address] UA w/Reflex Cultureon 2017 Comment NOT REPORTED Normal [facility] Acetoacetic Acid,Ur Negative Normal NEG [facility] Bilirubin.direct mass conc Negative Normal NEG [facility] Color Nom (U) YELLOW Normal YEL [facility] Glucose mass conc Negative Normal NEG [facility] Hemoglobin mass conc (Bld) SMALL Abnormal NEG [facility] Leuckocyte Esterase Negative Normal NEG [facility] Comment on above: Result Comment: Perf ormed at [facility], [address] [place] [address] Nitrite,Ur Negative Normal NEG [facility] PH,Ur 7.0 Normal 5.0-8.0 [facility] Protein mass conc Negative Normal NEG [facility] Spec. Cheney,Ur 1.015 Normal 1.005-1.030 [facility] Turbidity CLEAR Normal CLEAR [facility] Urobilinogen,Ur Normal Normal NORM [facility] Urinalysis,Microon 8 Amorphous sediment LM Ql (Urine sed) NOT REPORTED Normal [facility] Bacteria LM.HPF #/area (Urine sed) NOT REPORTED Normal [facility] Casts LM.LPF #/area (Urine sed) NOT REPORTED Normal [facility] Crystals LM Nom (Urine sed) NOT REPORTED Normal [facility] Epithelial, Renal NOT REPORTED Normal 0 [facility] Mucus Strands NOT REPORTED Normal [facility] Trichomonas NOT REPORTED Normal [facility] Yeast LM Ql (Urine sed) NOT REPORTED Normal [facility] ----- Normal [facility] Epithelial cells LM.HPF #/area (Urine sed) 0 TO 2 Normal 0-5 [facility] Other Observations Utilizing a urinalysis as the only screening method to exclude a potential Abnormal NREQ [facility] Comment on above: Result Comment: urop athogen can be unreliable in many patient populations. Rapid screening tests are less sensitive than culture and if UTI is a clinical possibility, culture should be considered despite a negative urinalysis. Performed at [facility], [address] [place] [address] RBC #/vol (U) 0 TO 2 Normal 0-2 [facility] WBC #/vol (U) None Normal 0-5 [facility] Vital Signs Date Time Vital Sign Value Performing Clinician Facility 07-17-2023 10:40-0400 Body height 165.1 cm Octavia Keen Other [facility] Other 07-17-2023 10:40-0400 Body mass index (BMI) [Ratio] 57.74 kg/m2 Octavia Keen Other [facility] Other 07-17-2023 10:40-0400 Body temperature 98.3 [degF] Octavia Keen Other [facility] Other 07-17-2023 10:40-0400 Body weight 157.4 kg Octavia Keen Other [facility] Other 07-17-2023 10:40-0400 Diastolic blood pressure 94 mm[Hg] Octavia Keen Other [facility] Other 07-17-2023 10:40-0400 Respiratory rate 18 /min Octavia Keen Other [facility] Other 07-17-2023 10:40-0400 SaO2% (BldA) [Mass fraction] 98 % Octavia Keen Other [facility] Other 07-17-2023 10:40-0400 Systolic blood pressure 147 mm[Hg] Octavia Keen Other [facility] Other 02-04-2023 15:10-0400 Body height 165.1 cm Lili Borges Other [facility] Other 02-04-2023 15:10-0400 Body mass index (BMI) [Ratio] 57.9 kg/m2 Lili Borges Other [facility] Other 02-04-2023 15:10-0400 Body temperature 99.1 [degF] Lili Borges Other [facility] Other 02-04-2023 15:10-0400 Body weight 157.85 kg Lili Borges Other [facility] Other 02-04-2023 15:10-0400 Diastolic blood pressure 100 mm[Hg] Lili Borges Other [facility] Other 02-04-2023 15:10-0400 Respiratory rate 18 /min Lili Borges Other [facility] Other 02-04-2023 15:10-0400 SaO2% (BldA) [Mass fraction] 96 % Lili Borges Other [facility] Other 02-04-2023 15:10-0400 Systolic blood pressure 153 mm[Hg] Lili Borges Other [facility] Other 07-11-2022 12:50-0400 Body height 165.1 cm Lili Borges Other [facility] Other 07-11-2022 12:50-0400 Body mass index (BMI) [Ratio] 59.9 kg/m2 Lili Jony Other [facility] Other 07-11-2022 12:50-0400 Body temperature 97.7 [degF] Lili Borges Other [facility] Other 07-11-2022 12:50-0400 Body weight 163.3 kg Lili Jony Other [facility] Other 07-11-2022 12:50-0400 Respiratory rate 18 /min Lili Jony Other [facility] Other 07-11-2022 12:50-0400 SaO2% (BldA) [Mass fraction] 97 % Lili Borges Other [facility] Other 10-10-2021 15:15-0500 Body height 165.1 cm Marcia Gregorymond Other [facility] Other 10-10-2021 15:15-0500 Body mass index (BMI) [Ratio] 58.24 kg/m2 Marcia Bessie Other [facility] Other 10-10-2021 15:15-0500 Body temperature 98.2 [degF] Marcia Bessie Other [facility] Other 10-10-2021 15:15-0500 Body weight 158.76 kg Marcia Bessie Other [facility] Other 10-10-2021 15:15-0500 Respiratory rate 18 /min Marcia Bessie Other [facility] Other 10-10-2021 15:15-0500 SaO2% (BldA) [Mass fraction] 96 % Marcia La Other [facility] Other 08-31-2021 11:45-0400 Body height 165.1 cm Lili Ginty Other [facility] Other 08-31-2021 11:45-0400 Body mass index (BMI) [Ratio] 58.24 kg/m2 Lili Ginty Other [facility] Other 08-31-2021 11:45-0400 Body temperature 97.8 [degF] Lili Ginty Other [facility] Other 08-31-2021 11:45-0400 Body weight 158.76 kg Lili Ginty Other [facility] Other 08-31-2021 11:45-0400 SaO2% (BldA) [Mass fraction] 94 % Lili Ginty Other [facility] Other Encounters Encounter Date Encounter Type Care Provider Facility Start: 12-26-2023 End: 12-26-2023 ambulatory FRANK REIS Not Available Start: 12-01-2023 Refill Frank Vasques Work Phone: [facility] Comment on above: Major depressive dis order, recurrent, mild (HCC) (CMS/HCC); Major depressive disorder, recurrent episode, mild (HCC) (CMS/HCC) Start: 09-22-2023 End: 09-22-2023 ambulatory GER MYRICK Not Available Start: 09-08-2023 End: 09-08-2023 ambulatory ANGY ELIZONDO Not Available Start: 07-17-2023 End: 07-17-2023 ambulatory Octavia Keen Other [facility] Other Start: 07-17-2023 Office outpatient vi sit 15 minutes Octavia Keen [facility] Start: 02-22-2023 Encounter for genera l adult medical examination without abnormal findings DR FRANK ERIS [facility] Start: 02-19-2023 End: 02-20-[address] FRANK REIS Facility:[facility] Start: 02-19-2023 End: 02-20-2023 Encounter for general adult medical examination without abnormal findings DR FRANK REIS Facility:[facility] Start: 02-04-2023 End: 02-04-2023 ambulatory Lili Borges Other [facility] Other Start: 02-04-2023 Office outpatient vi sit 25 minutes Lili Borges [facility] Start: 07-11-2022 End: 07-11-2022 ambulatory Lili Josueler Other [facility] Other Start: 07-11-2022 Office outpatient vi sit 25 minutes Lili Borges [facility] Start: 03-05-2022 End: 03-05-[address] MAYRA GARCIA . Facility:[facility] Start: 10-10-2021 End: 10-10-2021 ambulatory Marcia La Other [facility] Other Start: 10-10-2021 Office outpatient vi sit 15 minutes Marcia Bessie [facility] Start: 08-31-2021 End: 08-31-2021 ambulatory Lili Ginty Other [facility] Other Start: 08-31-2021 Office outpatient vi sit 15 minutes Lili Ginty [facility] Start: 09-10-2018 Encounter for genera l adult medical examination without abnormal findings FRANK REIS [facility] Start: 09-10-2018 End: 09-11-2018 Patient encounter procedure MAYDA DAMIAN [facility] Start: 01-12-2018 End: 01-12-2018 [facility] Start: 12-29-2017 End: 12-29-2017 [facility] Procedures Date Procedure Procedure Detail Performing Clinician Start: 09-10-2018 Blood count complete automated FRANK DONOVANR Start: 09-10-2018 Comprehensive metabolic panel FRANK NADERER Start: 09-10-2018 Lipid panel FRANK WILLS [facility] Start: 09-10-2018 VITAMIN D 25 HYDROXY MA NELDA NADERER Start: 01-12-2018 Microscopic urinalysis FRANK DONOVANR Start: 01-12-2018 , URINE FRANK N ADERER Start: 01-12-2018 UA W/REFLEX CULTURE LETI REIS Plan of Treatment Date Care Activity Detail Author Start: 09-09-2024 End: 09-09-2024 Patient encounter procedure 09/09/2024 9:00 AM EST Office Visit [facility] [address] [place] [id number] Angy Elizondo [place] [address] [place] [address] [facility] Start: 06-27-2023 Influenza vaccination Influenza Vacc ine (#1) [facility] Start: 2016 Screening for malign ant neoplasm of cervix [facility] Start: 2007 Screening for malign ant neoplasm of cervix Pap Smear [facility] Payers Date Payer Category Payer Managed Care O (unspecified) [employer] [id number] 2016-Present [address] [place] [address] [facility] [id number] 1985 Unknown [id number] .[id number] 1985 Unknown [id number] .175 1986 Unknown [id number] .175 1986 Unknown [id number] .593 1985 Unknown [id number] .593 1986 Unknown [id number] .1259 1986 Unknown [id number] .1259 1985 Unknown [id number] .1259 1958 [facility] [id number] 1958 Private Health Insurance [id number] Social History Date Type Detail Facility Unknown if ever smoked [facility] Other Start: 09-05-2023 Sex Assigned [facility] Other Start: 09-05-2023 Tobacco smoking stat [facility] Never smoked tobacco [facility] Start: 09-22-2023 [...] antibiotic. Patient verbalized understanding of treatment plan. [facility] Other Evaluation note 02-04-2023 Note Date & [...] of diseases classified elsewhere (ICD-10 - B97.89) [facility] Other Evaluation note 09-15-2022 Note Date & Type Note Facility 07-11-2022 [...] fever/discomfo rt, cool mist humidifier. May use [place] as needed for cough, do not take any other OTCs while using [place]. Patient to follow up with PCP in 2-3 days. Immediate eval if SOB, difficulty breathing, chest pain, dizziness, or other concerning symptoms. Patient verbalizes understanding and is agreeable to treatment plan [facility] Other Evaluation note 10-10-2021 Note Date & [...] Patient care instructions given in writting by [facility] Care At Home document. [facility] Other Evaluation note 08-31-2021 Note Date & Type Note Facility 11-05-2021 Evaluation note Encounter Date Diagnosis Assessment Notes [...] Patient care instructions given in writting by [facility] Care At Home document [facility] Other Evaluation note Note Date & Type [...] See Above Hospitalization History kidney stones 06/2017 [facility] Other Summary Purpose Family History No Family History Records FoundNo Family History Records FoundNo Family History Records Found Advance Directives No Advanced Directives Records FoundNo Advanced Directives Records FoundNo Advanced Directives Records Found Additional Source Comments INFORMATION SOURCE (unrecogn ized section and content) DATE CREATED AUTHOR 11/16/2018 [facility] DATE CREATED AUTHOR AUTHOR'S FLIP CASTILLO 02/22/2023 [facility] DATE CREATED AUTHOR AUTHOR'S ORGANIZ ATION 12/28/2023 [facility] EPIC REASON FOR VISIT (unrecogniz ed section and content) Reason Comments Med Refill Care Teams (unrecognized sec tion and content) Work Study Student Relationship Specialty Start Date End Date Frank [...] BE BASED ON THE PRIMARY CLINICAL RECORDS. [employer] provides no warranty or guarantee of the accuracy or completeness of information in this document.
[2024-01-21 13:36] VITALS: BP 130/82; PULSE 109; RESP 18; TEMP 36.7; O2SAT 95; BMI 56.6
--- NOTE | 2024-01-21 14:29 | ED_ITS ---
HPI - General Adult General Stated complaint: ABDOMINAL PAIN Time Seen by Provider: 01/21/24 13:36 Source: patient Mode of arrival: walk-in History of Present Illness HPI narrative: This patient is here for evaluation of pain in her right anterior lateral torso area. She was here previously for similar complaints. She said after going to a physical therapist and massage therapist she was actually doing little bit better but the pain came back yesterday and is much worse she has not had nausea vomiting or diarrhea. She is not running a fever. 20 years ago she had cholecystectomy. She has normal color stool and urine. She has no epigastric pain and no chest pain. She does not have any shortness of breath. She has no swelling of her legs. She has an IUD in place and has no history of DVT or phlebitis. She does have a history of kidney stones. Movement does not seem to make the pain worse. Related Data Home Medications ?Medication ?Instructions ?Recorded ?Confirmed clonazepam 1 mg tablet 1 mg PO Q8H PRN anxiety 01/08/24 01/08/24 lamotrigine 150 mg tablet 150 mg PO DAILY 01/08/24 01/08/24 losartan 100 1 tab PO DAILY 01/08/24 01/08/24 mg-hydrochlorothiazide 25 mg tablet sumatriptan succinate 25 mg tablet 25 mg PO Q2H PRN migraine headache 01/08/24 01/08/24 venlafaxine 225 mg tablet,extended 225 mg PO DAILY 01/08/24 01/08/24 release 24 hr verapamil 180 mg tablet,extended mg PO DAILY 01/08/24 release Previous Rx's ?Medication ?Instructions ?Recorded methocarbamol 750 mg tablet 750 mg PO Q6H PRN pain #30 tabs 01/08/24 nabumetone 750 mg tablet 750 mg PO BID PRN pain #14 tabs 01/08/24 Allergies Allergy/AdvReac Type Severity Reaction Status Date / Time amoxicillin Allergy Unknown Verified 01/08/24 00:47 Penicillins Allergy Unknown Verified 01/08/24 00:47 Sulfa (Sulfonamide Allergy Unknown Verified 01/08/24 00:47 Antibiotics) PFSH PFS Social History Smoking status: Never smoker Exam Narrative Exam Narrative: Awake alert moves about with no hesitation grimacing or restriction of movement. In the sitting upright position she has no evidence of shingles or skin lesions in the affected area. Her lungs are completely clear with no wheeze rales or rhonchi there is no pericardial rub. Heart sounds are normal. The area of discomfort is over the anterior lateral sixth seventh and eighth rib. There is no crepitation , there is no subcutaneous emphysema. She has no tenderness in the right upper quadrant or hepatomegaly. No other abdominal discomfort to palpation. Constitutional Vital Signs, click to edit/add: Last Vital Signs Temp 98.0 F 01/21/24 13:36 Pulse 109 H 01/21/24 13:36 Resp 18 01/21/24 13:36 BP 130/82 01/21/24 13:36 Pulse Ox 95 01/21/24 13:36 O2 Del Method Room Air 01/21/24 13:36 Course Vital Signs Vital signs: Vital Signs Temperature 98.0 F 01/21/24 13:36 Pulse Rate 109 H 01/21/24 13:36 Respiratory Rate 18 01/21/24 13:36 Blood Pressure 130/82 01/21/24 13:36 Pulse Oximetry 95 01/21/24 13:36 Oxygen Delivery Method Room Air 01/21/24 13:36 Temperature 98.0 F 01/21/24 13:36 Pulse Rate 109 H 01/21/24 13:36 Respiratory Rate 18 01/21/24 13:36 Blood Pressure 130/82 01/21/24 13:36 Pulse Oximetry 95 01/21/24 13:36 Oxygen Delivery Method Room Air 01/21/24 13:36 Medical Decision Making [facility] Narrative Medical decision making narrative: This patient presents with a recurrence of the anterior lateral chest wall pain after being seen here previously. She did improve with treatments as noted above. However I felt to be prudent to go ahead and evaluate her further with a CT to make sure she does not have any biliary tract obstruction. The laboratory testing is normal. The urine shows no indication of infection she has no flank pain. The patient CT scan does show bilateral nephrolithiasis but no urinary tract obstruction. There is no abnormalities of the bile duct system. She is status postcholecystectomy. Laboratory testing is normal. Discharge Plan Discharge Stand Alone Forms: Portal Instructions Chief Complaint: Abdominal Pain Clinical Impression: Acute chest wall pain Patient Disposition: Home, Self-Care Time of Disposition Decision: 16:44 Prescriptions / Home Meds: No Action lamotrigine 150 mg tablet 150 mg PO DAILY sumatriptan succinate 25 mg tablet 25 mg PO Q2H PRN (Reason: migraine headache) clonazepam 1 mg tablet 1 mg PO Q8H PRN (Reason: anxiety) verapamil 180 mg tablet extended release PO DAILY losartan-hydrochlorothiazide 100-25 mg tablet 1 tab PO DAILY venlafaxine 225 mg tablet extended release 24hr 225 mg PO DAILY nabumetone 750 mg tablet 750 mg PO BID PRN (Reason: pain) Qty: 14 0RF methocarbamol 750 mg tablet 750 mg PO Q6H PRN (Reason: pain) Qty: 30 0RF Print Language: Venezuelan Additional Instructions: Toradol on a limited basis as needed Referrals: Frank Nunez MD [Primary Care Provider] - 1 week
--- NOTE | 2024-01-21 14:31 | CT_ITS ---
The [address] [address] Patient Name: DENA FELIPE MRN: [id number] date: 1985 Sex: F Assigned Patient Location: ER Current Patient Location: ER Accession/Order Number: [id number] Exam Date: 01/21/2024 15:35 Report Date: 01/21/2024 16:08 At the request of: XAVI ENGLAND Procedure: CT abdomen pelvis wo con CT ABDOMEN/PELVIS WITHOUT IV CONTRAST. INDICATION: Right anterior lateral chest discomfort COMPARISON: There are no other studies available for comparison. TECHNIQUE: Contiguous axial images were obtained from the lung bases to the pelvic floor without intravenous or oral contrast. Coronal and sagittal reformations are provided. FINDINGS: LOWER LUNGS: Clear. LIVER/BILIARY TREE: No discrete lesion. No intrahepatic ductal dilatation. GALLBLADDER: Status post cholecystectomy.. CBD: Normal CBD. SPLEEN: Normal in size. PANCREAS: No appreciable peripancreatic fluid. No pancreatic ductal dilatation. No discrete lesion. ADRENALS: Normal. KIDNEYS: No hydronephrosis. There are nonobstructing bilateral renal stones. STOMACH AND BOWEL: Stomach is unremarkable. No dilated bowel loops. No bowel wall thickening. APPENDIX: Normal appendix. PERITONEAL CAVITY: No fluid. No fat stranding. ABDOMINAL WALL: No subcutaneous stranding. No subcutaneous fluid collection. LYMPH NODES: No mesenteric or retroperitoneal lymphadenopathy by CT criteria. ABDOMINAL AORTA: No aneurysm. PELVIS: No acute abnormality. IUD in place. MUSCULOSKELETAL: No acute osseous abnormality. CT/CT abdomen pelvis wo con IMPRESSION: No acute abnormality in the abdomen or pelvis. No obstructive uropathy. Bilateral nephrolithiasis. Electronically authenticated by: LISANDRO GRIFFITH Date: 01/21/2024 16:08
[2024-01-21 15:08] LABS: Basophils Percent Auto 0.3 % (0.2-2.0); Eosinophils Absolute Auto 0.1 10^3/uL (0.0-0.7); Eosinophils Percent Auto 1.4 % (0.9-7.0); Hematocrit 41.3 % (36.0-48.0); Hemoglobin 13.6 g/dL (12.0-16.0); Immature Granulocytes Abs Auto 0.01 10^3/uL (0.00-0.03); Immature Granulocytes Pct Auto 0.1 % (0.0-0.5); Lymphocytes Absolute Auto 3.2 10^3/uL (1.2-3.8); Lymphocytes Percent Auto 32.2 % (20.5-60.0); Mean Corpuscular HGB Conc 32.9 g/dL (29.9-35.2); Mean Corpuscular Hemoglobin 28.9 pg (26.7-34.0); Mean Corpuscular Volume 87.9 fL (81.0-99.0); Mean Platelet Volume 10.6 fL (9.5-13.5); Monocytes Absolute Auto 0.5 10^3/uL (0.3-0.8); Monocytes Percent Auto 5.2 % (1.7-12.0); Neutrophils Absolute Auto 6.1 10^3/uL (1.4-6.5); Neutrophils Percent Auto 60.8 % (43.0-75.0); Platelet Count 392 10^3/uL (150-450)
[2024-01-21 15:22] LABS: Bilirubin Urine NEGATIVE (NEGATIVE); Blood Urine NEGATIVE (NEGATIVE); Clarity Urine CLEAR (CLEAR); Color Urine YELLOW (YELLOW); Glucose Urine UA NEGATIVE (NEGATIVE); Ketones Urine NEGATIVE (NEGATIVE); Leukocyte Esterase Urine NEGATIVE (NEGATIVE); Nitrite Urine NEGATIVE (NEGATIVE); Protein Urine NEGATIVE (NEG/TRACE); Specific Gravity Urine >=1.030 (1.005-1.025); Urobilinogen Urine 0.2 EU/dL (0.2-1.0)
[2024-01-21 15:23] LABS: Urine Microscopic Indicated NO
[2024-01-21 15:24] LABS: Alanine Aminotransferase 33 U/L (14-59); Albumin Globulin Ratio 0.9; Albumin Level 3.5 g/dL (3.4-5.0); Alkaline Phosphatase 66 U/L (46-116); Anion Gap 10.7; Aspartate Amino Transferase 16 U/L (15-37); BUN Creatinine Ratio 18.1; Bilirubin Total 0.3 mg/dL (0.2-1.0); Calcium 9.1 mg/dL (8.5-10.1); Carbon Dioxide 30.6 mmol/L (21.0-32.0); Chloride 101 mmol/L (98-107); Estimated GFR (African America >60 (>=60); Estimated GFR (Non-African Ame >60 (>=60); Globulin 4.1 g/dL; Glucose 92 mg/dL (74-106); Potassium 3.3 mmol/L (3.5-5.1); Sodium 139 mmol/L (136-145); Total Protein 7.6 g/dL (6.4-8.2)
[2024-01-21 16:57] VITALS: BP 138/78; PULSE 100; RESP 18; O2SAT 97
== END 2024-01-21 16:59 | disposition home or self-care (01) ==
PROVIDERS: Emergency Provider Emergency Medicine Emergency Medical Services; PCP Family Medicine
DX: R07.89 Other chest pain (principal); Z97.5 Presence of (intrauterine) contraceptive device; Z87.442 Personal history of urinary calculi; Z79.899 Other long term (current) drug therapy
CPT/HCPCS: 36415; 74176; 80053; 81003; 85025; 99285

== ENCOUNTER 2024-09-09 20:39 | Outpatient (REF) | payer OTHER, SELFPAY ==
--- OUTSIDE RECORDS SUMMARY | 2024-09-09 20:43 | XMS_ITS | CCD ---
Author Organization [facility] Care Team Providers Care Athletics Director Name Role Phone FRANK REIS Primary Care UnavailHARPER Murphy Attending Unavailable FRANK REIS Primary Care Unavailabl e HARPER CALLAHAN Attending Unavailable MAYDA DAMIAN Referring Unavailable MAYDA DAMIAN Primary Care Unavailable Lili Luo Unavailable Marcia La Unavailable Lili Borges Unavailable DR FRANK REIS Admitting Unavailable CHATO, DR FRANK Garcia Primary Care Unavailable CHATO, DR FRANK Garcia Consulting Unavailable CHATO, DR FRANK Garcia Attending Unavailable KARASIK ., DR NUNEZ Attending Unavailjunior e CHATO, DR FRANK Garcia Primary Care Unavailable KARASIK ., DR NUNEZ Admitting Unavailabl e KARASIK ., DR NUNEZ Consulting Unavailabl e Octavia Keen Unavailable Frank Reis MD Primary Care Provider Frank Reis MD Primary Care Provider [phone] FRANK REIS Attending Unavailable CHATO, FRANK Attending Unavailable ANGY ELIZONDO Attending Unavailable GER MYRICK Attending Unavailable CHATO, FRANK Attending Unavailable CHATO, FRANK Attending Unavailable LEONORA PETERSON Attending Unavailable CHATO, FRANK Attending Unavailable Allergies Allergy Classification Reported Allergen(s) Allergy Type Date of Onset Reaction(s) Facility (12 sources) Amoxicillin Drug Allergy 10-23-20 16 Rash [facility] (5 sources) Sulf-10 Drug allergy rash, nausea [facility] Other (1 source) Amoxicillin Drug Allergy 02-17-20 16 [facility] (1 source) Penicillin Drug Allergy [facility] (1 source) Sulfonamides (Antibiotic) Drug allergy (disorder) 02-17-20 16 [facility] (7 sources) Penicillins Drug Intolerance 12-30-19 18 [facility] (7 sources) Sulfonamides (Antibiotic) Drug Intolerance 10-23-20 16 [facility] Medications Current Medications Medication Drug Class(es) Dates Sig (Normalized) Sig (Original) ARIPiprazole 5 mg oral tablet (3 sources) Atypical Antipsychotic Start: 08-25-2024 take 1 tablet by mouth once daily ARIPiprazole (Abilify) 5 MG tablet Indications: Major depressive disorder, recurrent, moderate (CMS/HCC) Take 1 tablet (5 mg) by mouth Daily 30 tablet 3 08/25/2024 Active Start: 08-25-2024 take 1 tablet by emani th once daily ARIPiprazole (Abilify) 5 MG tablet Indications: Major depressive disorder, recurrent, moderate (CMS/HCC) Take 1 tablet (5 mg) by mouth Daily 30 tablet 3 08/25/2024 Active doxycycline hyclate 100 mg oral capsule [...] / losartan potassium 100 mg oral tablet (9 sources) Thiazide Diuretic, Angiotensin 2 Receptor Charbel Start: 04-05-2024 take 1 tablet by mouth once daily losartan-hydroC HLOROthiazide (Hyzaar) 100-25 MG tablet Indications: Essential (primary) hypertension (CMS/HCC) , Benign essential hypertension (CMS/HCC) TAKE 1 TABLET BY MOUTH EVERY DAY 90 tablet 1 04/05/2024 Active take 1 tablet by emani th in the morning losartan-hydroCHLOROthiazide (Hyzaar) 10 0-25 MG tablet Take 1 tablet by mouth in the morning. 0 Active take 1 tablet by emani th every twenty-four hours Losartan Potassium-HCTZ 100-25 MG 1 tabl et Orally Once a day Active lamoTRIgine 200 mg oral tablet (12 sources) Mood Stabilizer, Anti-epileptic Agent Start: 07-16-2024 take 1 tablet by mouth at bedtime lamoTRIgine (LaMICtal) 200 MG tablet Indications: Major depressive disorder, recurrent, moderate (CMS/HCC) Take 1 tablet (200 mg) by mouth at bedtime 30 tablet 5 07/16/2024 Active Start: 07-14-2023 take 1 tablet by emani th at bedtime lamoTRIgine (LaMICtal) 150 MG tablet [...] (3 sources) beta-Adrenergic Charbel Metoprolol Succinate Active Multiple Vitamin (multivitamin) tablet (6 sources) take 1 tablet by mouth once daily Multiple Vitamin (multivitamin) tablet Take 1 tablet by mouth Daily Active predniSONE 20 mg oral tablet (1 [...] per week 2 mL 0 09/29/2023 Active Semaglutide-Weight Management (Wegovy) 2.4 MG/0.75ML solution auto-injector (6 sources) Start: 024 inject 2.4 mg by subcutaneous injection every week Semaglutide-Weight Management (Wegovy) 2.4 MG/0.75ML solution auto-injector Indications: Morbid obesity due to excess calories (CMS/HCC) Inject 2.4 mg under the skin 1 (one) time per week 3 mL 3 07/16/2024 Active SUMAtriptan 100 mg oral tablet (7 sources) Serotonin-1b and Serotonin-1d Receptor Agonist Start: 024 SUMAtriptan (Imitrex) 100 MG tablet Indications: Migraine without aura and without status migrainosus, not intractable (CMS/HCC) Take 1 tablet (100 mg) by mouth 1 (one) time if needed for migraine May repeat dose once in 2 hours if no relief. Do not exceed 2 doses in 24 hours. 9 tablet 3 12/26/2023 Active SUMAtriptan (Imi trex) 25 MG tablet TAKE 1 TABLET BY MOUTH ONCE NEEDED AT THE ONSET OF A HEADACHE. MAY REPEAT IN 2 HOURS ONCE 0 Active 24 hr venlafaxine 225 mg extended release oral tablet (12 sources) Serotonin and Norepinephrine Reuptake Inhibitor Start: 04-05-2024 take 1 tablet by mouth once daily venlafaxine XR (Effexor XR) 225 MG 24 hr tablet Indications: Major depressive disorder, recurrent, mild (HCC) (CMS/HCC) , Major depressive disorder, recurrent episode, mild (HCC) (CMS/HCC) TAKE 1 TABLET BY MOUTH EVERY DAY 90 tablet 1 04/05/2024 Active take 1 tablet by emani th every twenty-four hours in the morning venlafaxine XR (Effexor XR) 225 MG 24 hr tablet Take 225 mg by mouth in the morning. 0 Active Effexor Active verapamil hydrochloride 180 mg extended release oral tablet (12 sources) Calcium Channel Charbel Start: 04-05-2024 take 1 tablet by mouth once daily verapamil SR (Calan SR) 180 MG ER tablet Indications: Essential (primary) hypertension (CMS/HCC) , Benign essential hypertension (CMS/HCC) TAKE 1 TABLET BY MOUTH EVERY DAY 90 tablet 3 04/05/2024 Active take 1 capsule by [facility] every twenty-four hours at bedtime verapamil ER (Verelan) 120 MG 24 hr capsule Take 120 mg by mouth at bedtime. 0 Active Verapamil HCl Ac tive Completed/Discontinued Medications Medication Drug Class(es) Dates Sig (Normalized) Sig (Original) [id number] 200 actuat albuterol 0.09 mg/actuat metered dose [...] Jun, Not-Taking azithromycin 250 mg oral tablet (8 sources) Macrolide Antimicrobial Start: 08-22-2024 End: 08-25-2024 azithromycin (Zithromax) 250 MG tablet Indications: Acute rhinosinusitis Take 2 tabs (500 mg) by mouth today, than 1 tab (250 mg) daily for 4 days. 6 tablet 08/22/2024 08/25/2024 Discontinued Start: 07-11-2022 Azithromycin 2 50 MG 2 tablet on the first day, then 1 tablet daily for 4 days Orally Once a day for 5 day(s) Jun, Not-Taking benzonatate 100 mg oral capsule (5 sources) Non-narcotic Antitussive Start: 08-22-2024 End: 08-29-2024 take 1 capsule by mouth three times daily as needed for cough benzonatate (Tessalon Perles) 100 MG capsule Indications: Acute rhinosinusitis Take 1 capsule (100 mg) by mouth 3 (three) times a day as needed for cough for up to 7 days Do not crush or chew. 21 capsule 08/22/2024 08/25/2024 Discontinued clonazePAM 1 mg oral tablet (14 sources) Benzodiazepine Start: 06-24-2024 End: 08-25-2024 take 1 tablet by mouth three times daily as needed for anxiety clonazePAM (KlonoPIN) 1 MG tablet Indications: Major depressive disorder, recurrent, mild (HCC) (CMS/HCC) , Major depressive disorder, recurrent episode, mild (HCC) (CMS/HCC) TAKE 1 TABLET BY MOUTH 3 TIMES A DAY NEEDED FOR ANXIETY 90 tablet 06/24/2024 08/25/2024 Discontinued (Reorder) Start: 12-03-2023 take 1 tablet by emani th three times daily as needed clonazePAM (KlonoPIN) [...] needed. 0 07/15/2023 12/03/2023 Discontinued KlonoPIN Active dextromethorphan hydrobromide 1.5 mg/ml / pyrilamine maleate 1.5 mg/ml oral solution (8 sources) Uncompetitive Y-igwvdl-X-aspartate Receptor Antagonist, Sigma-1 Agonist Start: 07-11-2022 take 10 mL by mouth every eight hours [place] DM 7.5-7.5 MG/5ML 10 mL Orally every 8 hours for 5 days Jun, Not-Taking Start: 09-01-2020 [place] DM 7.5- 7.5 MG/5ML 10 ml Orally [...] Classification Problem Date Documented Da te Episodic/Chronic Anxiety disorders (8 sources) Generalized anxiety disorder; Translations: [Generalized anxiety disorder] Onset: 12-26-2023 08-25-2024 Chronic Essential hypertension (9 sources) Essential hypertension; Translations: [Essential (primary) hypertension] Onset: 09-10-2018 09-29-2023 Chronic Headache; including migraine (14 sources) Episodic cluster headache; Translations: [Episodic cluster headache, intractable] Onset: 09-10-2018 09-29-2023 Chronic Immunizations and screening for infectious disease (6 sources) Contact with and (suspected) exposure to other viral communicable diseases; Translations: [Contact with and (suspected) exposure to other viral communicable diseases] Onset: 08-31-2021 Resolved: 07-11-2022 Episodic Mood disorders (12 sources) Recurrent major depressive episodes, mild ; Translations: [Major depressive disorder, recurrent, mild] Onset: 12-26-2023 12-01-2023 Chronic Nutritional deficiencies (1 source) Vitamin D deficiency, unspecified; Translations: [Vitamin D deficiency, unspecified] Onset: 09-10-2018 Chronic Other nutritional; endocrine; and metabolic disorders (1 source) Body mass index 40+ - severely obese; Translations: [Morbid (severe) obesity due to excess calories] Onset: 09-10-2018 09-29-2023 Chronic Other nutritional; endocrine; and metabolic disorders (6 sources) Morbid obesity; Translations: [Morbid (severe) obesity due to excess calories] Onset: 09-10-2018 12-26-2023 Chronic Other upper respiratory disease (6 sources) Allergic rhinitis due to pollen; Translations: [Allergic rhinitis due to pollen] Onset: 12-26-2023 12-26-2023 Chronic Other upper respiratory infections (9 sources) Acute pharyngitis, unspecified; Translations: [Acute sinusitis, unspecified] Onset: 08-31-2021 Resolved: 10-10-2021 Episodic Residual codes; unclassified (7 sources) Obstructive sleep apnea syndrome; Translations: [Obstructive sleep [...] 03-05-2022 Episodic Otitis media and related conditions (7 sources) Dysfunction of eustachian tube; Translations: [Unspecified Eustachian tube disorder, unspecified ear] Onset: 10-16-2017 09-29-2023 Episodic Residual codes; unclassified (6 sources) Bilateral lower limb edema; Translations: [Localized edema] Onset: 12-26-2023 12-26-2023 Episodic Skin and subcutaneous tissue infections (1 source) Cellulitis of right finger; Translations: [Cellulitis of right finger] Onset: 12-29-2017 Episodic Sprains and strains (6 sources) Strain of intercostal muscle; Translations: [Strain of muscle and tendon of front wall of thorax, initial encounter] Onset: 01-29-2024 Resolved: 03-31-2024 03-31-2024 Episodic Unclassified (2 sources) Contact with and (suspected) exposure to covid-19 Z20.822 Results Test Name Value Interpretation Reference Range Facility Laboratory - Microbiology an d Antimicrobial susceptibilityon 08-22-2024 SARS-CoV-2 (COVID-19) RNA MOHAN+probe Ql (Unsp spec) Negative [facility] No Panel Informationon 08-22 FLU A Negative [facility] FLU B Negative [facility] Interpretation and review of laboratory results Normal [facility] S. pyogenes DNA MOHAN+probe No m (Unsp spec)on 08-22-2024 Interpretation and review of laboratory results Normal [facility] RESULT Negative [facility] COVID/FLU RT-PCRon SARS-CoV-2 (COVID-19) RNA MOHAN+probe Ql (Unsp spec) Positive [facility] Other COVID/FLU RT-PCR Negative [email or web address] Other CBC AUTO DIFFon 02-19-2023 BASO # 0.0 103/ul Normal 0.0-0.1 [facility] Comment on above: Performed By: #### C BC #### [facility] [address] [place] [address] Dr. Maxi Chen Basophils/100 WBC (Bld) 0.2 % Normal 0.2-2.0 [facility] Comment on above: Performed By: #### C BC #### [facility] [address] [place] [address] Dr. Maxi Chen EO # 0.1 103/ul Normal 0.0-0.7 [facility] Comment on above: Performed By: #### C BC #### [facility] [address] [place] [address] Dr. Maxi Chen Eosinophils/100 WBC (Bld) 1.7 % Normal 0.9-7.0 [facility] Comment on above: Performed By: #### C BC #### [facility] [address] [place] [address] Dr. Maxi Chen Erythrocyte distribution width (RBC) [Ratio] 14.5 % Normal 11.0-15.0 [facility] Comment on above: Performed By: #### C BC #### [facility] [address] [place] [address] Dr. Maxi Chen Hematocrit (Bld) [Volume fraction] 41.0 % Normal 36.0-48.0 [facility] Comment on above: Performed By: #### C BC #### [facility] [address] [place] [address] Dr. Maxi Chen Hemoglobin (Bld) [Mass/Vol] 13.3 g/dL Normal 12.0-16.0 [facility] Comment on above: Performed By: #### C BC #### [facility] [address] [place] [address] Dr. Maxi Chen IG # 0.02 10e3/ul Normal 0.00-0.03 [facility] Comment on above: Performed By: #### C BC #### [facility] [address] [place] [address] Dr. Maxi Chen IG % 0.2 % Normal 0.0-0.5 [facility] Comment on above: Performed By: #### C BC #### [facility] [address] [place] [address] Dr. Maxi Chen LYMPH # 2.2 103/ul Normal 1.2-3.8 [facility] Comment on above: Performed By: #### C BC #### [facility] [address] [place] [address] Dr. Maxi Chen Lymphocytes/100 WBC (Bld) 26.3 % Normal 20.5-60.0 [facility] Comment on above: Performed By: #### C BC #### [facility] [address] [place] [address] Dr. Maxi Chen MANUAL DIFF REQ NO Normal [facility] Comment on above: Performed By: #### C BC #### [facility] [address] [place] [address] Dr. Maxi Chen MCH (RBC) [Entitic mass] 28.1 pg Normal 26.7-34.0 [facility] Comment on above: Performed By: #### C BC #### [facility] [address] [place] [address] Dr. Maxi Chen MCHC (RBC) [Mass/Vol] 32.4 g/dL Normal 29.9-35.2 [facility] Comment on above: Performed By: #### C BC #### [facility] [address] [place] [address] Dr. Maxi Chen MCV (RBC) [Entitic vol] 86.7 fL Normal 81.0-99.0 [facility] Comment on above: Performed By: #### C BC #### [facility] [address] [place] [address] Dr. Maxi Chen MONO # 0.4 103/ul Normal 0.3-0.8 [facility] Comment on above: Performed By: #### C BC #### [facility] [address] [place] [address] Dr. Maxi Chen Monocytes/100 WBC (Bld) 5.3 % Normal 1.7-12.0 [facility] Comment on above: Performed By: #### C BC #### [facility] [address] [place] [address] Dr. Maxi Chen NEUT # 5.6 103/ul Normal 1.4-6.5 [facility] Comment on above: Performed By: #### C BC #### [facility] [address] [place] [address] Dr. Maxi Chen Neutrophils/100 WBC (Bld) 66.3 % Normal 43.0-75.0 [facility] Comment on above: Performed By: #### C BC #### [facility] [address] [place] [address] Dr. Maxi Chen Platelet mean volume (Bld) [Entitic vol] 10.1 fL Normal 9.5-13.5 [facility] Comment on above: Performed By: #### C BC #### [facility] [address] [place] [address] Dr. Maxi Chen PLT 343 103/ul Normal 150-450 [facility] Comment on above: Performed By: #### C BC #### [facility] [address] [place] [address] Dr. Maxi Chen RBC 4.73 106/ul Normal 4.20-5.40 [facility] Comment on above: Performed By: #### C BC #### [facility] [address] [place] [address] Dr. Maxi Chen WBC 8.4 103/ul Normal 4.0-11.0 [facility] Comment on above: Performed By: #### C BC #### [facility] [address] [place] [address] Dr. Maxi Chen GLYCOHEMOGLOBIN A1Con 2022 ADA RECOMMENDATION SEE BELOW Normal [facility] Comment on above: Result Comment: ADA RECOMMENDED LIMIT 4.0 - 6.0 ADA THERAPEUTIC TARGET < 7.0 ACTION SUGGESTED > 7.0 Performed By: #### A 1C #### [facility] [address] [place] [address] Dr. Maxi Chen Glucose [Mass/Vol] 117 mg/dL Normal [facility] Comment on above: Performed By: #### A 1C #### [facility] [address] [address] [address] Maxi Chen HbA1c (Bld) [Mass fraction] 5.7 % Normal 4.5-6.2 [facility] Comment on above: Performed By: #### A 1C #### [facility] [address] [address] [address] Maxi Chen LIPID PROFILEon 02-19-2023 CHOL-HDL RATIO NORM SEE BELOW Normal [facility] Comment on above: Result Comment: 3.3 - 4.4 LOW RISK 4.4 - 7.1 AVERAGE RISK 7.1 - 11.0 MODERATE RISK >11.0 HIGH RISK Performed By: #### T SH, BMP, LIVER, LIPID #### [facility] [address] [address] [address] Maxi Chen Cholesterol [Mass/Vol] 220 mg/dL Critically high <=200 [facility] Comment on above: Performed By: #### T SH, BMP, LIVER, LIPID #### [facility] [address] [address] [address] Maxi Chen Cholesterol in HDL [Mass/Vol] 42 mg/dL Normal 40-60 [facility] Comment on above: Performed By: #### T SH, BMP, LIVER, LIPID #### [facility] [address] [address] [address] Maxi Chen Cholesterol in LDL [Mass/Vol] 135.0 mg/dL Normal [facility] Comment on above: Performed By: #### T SH, BMP, LIVER, LIPID #### [facility] [address] [address] [address] Maxi Chen Cholesterol.total/Cho lesterol in HDL [Mass ratio] 5.2 {ratio} Normal [facility] Comment on above: Performed By: #### T SH, BMP, LIVER, LIPID #### [facility] [address] [address] [address] Maxi Chen HDL NORMAL > or = 60 mg/dl - LOW CARDIOVASCULAR RISK <40 mg/dl - HIGH CARDIOVASCULAR RISK Normal [facility] Comment on above: Performed By: #### T SH, BMP, LIVER, LIPID #### [facility] [address] [address] [address] Maxi Chen LDL CALC NORMAL SEE BELOW Normal [facility] Comment on above: Result Comment: <100 mg/dl OPTIMAL 100 - 129 mg/dl NEAR OR ABOVE OPTIMAL 130 - 159 mg/dl BORDERLINE HIGH 160 - 189 mg/dl HIGH >190 mg/dl VERY HIGH Performed By: #### T SH, BMP, LIVER, LIPID #### [facility] [address] [address] [address] Maxi Chen Triglyceride [Mass/Vol] 215 mg/dL Critically high <=150 [facility] Comment on above: Performed By: #### T SH, BMP, LIVER, LIPID #### [facility] [address] [address] [address] Maxi Chen VLDL CALC 43.0 mg/dL Normal [facility] Comment on above: Performed By: #### T SH, BMP, LIVER, LIPID #### [facility] [address] [address] [address] Maxi Chen LIVER PROFILEon 02-19-2023 Albumin [Mass/Vol] 3.3 g/dL Critically low 3.4-5.0 [facility] Comment on above: Performed By: #### T SH, BMP, LIVER, LIPID #### [facility] [address] [address] [address] Maxi Chen Albumin/Globulin [Mass ratio] 0.8 {ratio} Normal [facility] Comment on above: Performed By: #### T SH, BMP, LIVER, LIPID #### [facility] [address] [address] [address] Maxi Chen ALP [Catalytic activity/Vol] 58 U/L Normal 46-116 [facility] Comment on above: Performed By: #### T SH, BMP, LIVER, LIPID #### [facility] [address] [address] [address] Maxi Chen ALT [Catalytic activity/Vol] 37 U/L Normal 14-59 [facility] Comment on above: Performed By: #### T SH, BMP, LIVER, LIPID #### [facility] [address] [place] [address] Dr. Maxi Chen AST [Catalytic activity/Vol] 18 U/L Normal 15-37 [facility] Comment on above: Performed By: #### T SH, BMP, LIVER, LIPID #### [facility] [address] [place] [address] Dr. Maxi Chen BILI, CONJUGATED 0.1 mg/dL Normal 0.0-0.2 [facility] Comment on above: Performed By: #### T SH, BMP, LIVER, LIPID #### [facility] [address] [place] [address] Dr. Maxi Chen Bilirubin [Mass/Vol] 0.4 mg/dL Normal 0.2-1.0 [facility] Comment on above: Performed By: #### T SH, BMP, LIVER, LIPID #### [facility] [address] [place] [address] Dr. Maxi Chen Globulin (S) [Mass/Vol] 4.2 g/dL Normal [facility] Comment on above: Performed By: #### T SH, BMP, LIVER, LIPID #### [facility] [address] [place] [address] Dr. Maxi Chen Protein [Mass/Vol] 7.5 g/dL Normal 6.4-8.2 [facility] Comment on above: Performed By: #### T SH, BMP, LIVER, LIPID #### [facility] [address] [place] [address] Dr. Maxi Chen PROF CHEM 8 (BAS METB)on Anion gap [Moles/Vol] 11.8 mmol/L [facility] Comment on above: Performed By: #### T SH, BMP, LIVER, LIPID #### [facility] [address] [place] [address] Dr. Maxi Chen Calcium [Mass/Vol] 9.1 mg/dL Normal 8.5-10.1 [facility] Comment on above: Performed By: #### T SH, BMP, LIVER, LIPID #### [facility] [address] [address] [address] Maxi Chen Chloride [Moles/Vol] 102 mmol/L Normal 98-107 [facility] Comment on above: Performed By: #### T SH, BMP, LIVER, LIPID #### [facility] [address] [address] [address] Maxi Chen CO2 [Moles/Vol] 30.5 mmol/L Normal 21.0-32.0 [facility] Comment on above: Performed By: #### T SH, BMP, LIVER, LIPID #### [facility] [address] [address] [address] Maxi Chen Creatinine [Mass/Vol] 0.76 mg/dL Normal 0.55-1.02 [facility] Comment on above: Performed By: #### T SH, BMP, LIVER, LIPID #### [facility] [address] [address] [address] Maxi Chen EGFR-AF SWEDISH >60 Normal >=60 [facility] Comment on above: Performed By: #### T SH, BMP, LIVER, LIPID #### [facility] [address] [address] [address] Maxi Chen EGFR-NON AF SWEDISH >60 Normal >=60 [facility] Comment on above: Performed By: #### T SH, BMP, LIVER, LIPID #### [facility] [address] [address] [address] Maxi Chen Glucose [Mass/Vol] 106 mg/dL Normal 74-106 [facility] Comment on above: Performed By: #### T SH, BMP, LIVER, LIPID #### [facility] [address] [address] [address] Maxi Chen Potassium [Moles/Vol] 3.3 mmol/L Critically low 3.5-5.1 [facility] Comment on above: Performed By: #### T SH, BMP, LIVER, LIPID #### [facility] [address] [address] [address] Maxi Chen Sodium [Moles/Vol] 141 mmol/L Normal 136-145 [facility] Comment on above: Performed By: #### T SH, BMP, LIVER, LIPID #### [facility] [address] [address] [address] Maxi Chen Urea nitrogen [Mass/Vol] 5.0 mg/dL Critically low 7.0-18.0 [facility] Comment on above: Performed By: #### T SH, BMP, LIVER, LIPID #### [facility] [address] [address] [address] Maxi Chen Urea nitrogen/Creatinine [Mass ratio] 6.6 mg/mg Normal [facility] Comment on above: Performed By: #### T SH, BMP, LIVER, LIPID #### [facility] [address] [place] [address] Dr. Maxi Chen TSHon 02-19-2023 TSH 1.302 uIU/mL Normal 0.358-3.740 [facility] Comment on above: Performed By: #### T SH, BMP, LIVER, LIPID #### [facility] [address] [place] [address] Dr. Maxi Chen COVID + FLU Quick Testingon 02-04-2023 SARS-CoV-2 (COVID-19) RNA MOHAN+probe Ql (Unsp spec) Negative [email or web address] Other COVID + FLU Quick Testing Negative [email or web address] Other Quick Strepon 02-04-2023 S. pyogenes Org specific cx Ql (Throat) Negative [email or web address] [email or web address] Other Quick Strep [facility] [facility] [email or web address] Other COVID Quick Testingon 2021 Result Negative [facility] [email or web address] Other CHLAMYDIA/GONOCOCCUS MOHAN (SW AB/URINE/PAPon 03-06-2022 Chlamydia trachomatis, MOHAN Negative Normal Negative [facility] Comment on above: Performed By: #### C T/NGNA #### [facility] [address] [place] [address] Dr. Maxi Chen Neisseria gonorrhoeae, MOHAN Negative Normal Negative [facility] Comment on above: Performed By: #### C T/NGNA #### [facility] [address] [address] [address] Maxi Chen VAGINITIS/VAGINOSIS DNA PROB Evert 03-06-2022 Maye species Negative Normal Negative [facility] Comment on above: Performed By: #### V AGINT #### [facility] [address] [address] [address] Maxi Chen Gardnerella vaginalis Negative Normal Negative [facility] Comment on above: Performed By: #### V AGINT #### [facility] [address] [address] [address] Maxi Chen Trichomonas vaginalis Negative Normal Negative [facility] Comment on above: Performed By: #### V AGINT #### [facility] [address] [place] [address] Dr. Maxi Chen CBCon 09-10-2018 Erythrocyte distribution width Ratio (RBC) 14.3 % Normal 11.8-14.4 [facility] Comment on above: Performed By: #### C BC, CP, LIPR, VD25 #### [address] [address] Hematocrit Volume Fraction (Bld) 42.8 % Normal 36.3-47.1 [facility] Comment on above: Performed By: #### C BC, CP, LIPR, VD25 #### [facility] [employer] [address] [place] [address] Hemoglobin mass conc (Bld) 13.5 g/dL Normal 11.9-15.1 [facility] Comment on above: Performed By: #### C BC, CP, LIPR, VD25 #### [facility] [address] [place] [address] MCH Entitic mass (RBC) 27.3 pg Normal 25.2-33.5 [facility] Comment on above: Performed By: #### C BC, CP, LIPR, VD25 #### [facility] [address] [address] MCHC mass conc (RBC) 31.5 g/dL Normal 28.4-34.8 [facility] Comment on above: Performed By: #### C BC, CP, LIPR, VD25 #### [address] [address] MCV Entitic volume (RBC) 86.5 fL Normal 82.6-102.9 [facility] Comment on above: Performed By: #### C BC, CP, LIPR, VD25 #### [address] [address] NRBC Automated 0.0 per 100 WBC Normal 0.0 [facility] Comment on above: Performed By: #### C BC, CP, LIPR, VD25 #### [address] [address] Platelet mean volume Entitic volume (Bld) 11.4 fL Normal 8.1-13.5 [facility] Comment on above: Performed By: #### C BC, CP, LIPR, VD25 #### [address] [address] Platelets #/vol (Bld) 360 10*3/uL Normal 138-453 [facility] Comment on above: Performed By: #### C BC, CP, LIPR, VD25 #### [address] [address] RBC #/vol (Bld) 4.95 10*6/uL Normal 3.95-5.11 [facility] Comment on above: Performed By: #### C BC, CP, LIPR, VD25 #### [address] [address] WBC #/vol (Bld) 10.0 10*3/uL Normal 3.5-11.3 [facility] Comment on above: Performed By: #### C BC, CP, LIPR, VD25 #### [employer] [address] [place] [address] Comp Metabolic Profon 2017 (cont.) Normal [facility] Comment on above: Result Comment: Aver age GFR for 30-39 years old: 107 mL/min/1.73sq m Chronic Kidney Disease: <60 mL/min/1.73sq m Kidney failure: <15 mL/min/1.73sq m eGFR calculated using average adult body mass. Additional eGFR calculator available at: http://www.Darberry/multiple_crcl_2011.htm Performed By: #### C BC, CP, LIPR, VD25 #### [employer] [address] [place] [address] Albumin mass conc 4.2 g/dL Normal 3.5-5.2 [facility] Comment on above: Performed By: #### C BC, CP, LIPR, VD25 #### [employer] [address] [place] [address] Albumin/Globulin mass ratio 1.2 {ratio} Normal 1.0-2.5 [facility] Comment on above: Performed By: #### C BC, CP, LIPR, VD25 #### [employer] [address] [place] [address] Alkaline Phos 63 U/L Normal 35-104 [facility] Comment on above: Performed By: #### C BC, CP, LIPR, VD25 #### [employer] [facility] [place] [address] ALT enzyme act/vol 21 U/L Normal 5-33 [facility] Comment on above: Performed By: #### C BC, CP, LIPR, VD25 #### [employer] [address] [place] [address] Anion gap molar conc 25 mmol/L High 9-17 [facility] Comment on above: Performed By: #### C BC, CP, LIPR, VD25 #### [facility] [employer] [address] [place] [address] AST enzyme act/vol 18 U/L Normal <32 [facility] Comment on above: Performed By: #### C BC, CP, LIPR, VD25 #### [facility] [employer] [address] [place] [address] Bilirubin Ql (U) 0.29 mg/dL Low 0.3-1.2 [facility] Comment on above: Performed By: #### C BC, CP, LIPR, VD25 #### [facility] [employer] [address] [place] [address] Calcium mass conc 9.3 mg/dL Normal 8.6-10.4 [facility] Comment on above: Performed By: #### C BC, CP, LIPR, VD25 #### [facility] [employer] [address] [place] [address] Chloride molar conc 98 mmol/L Normal 98-107 [facility] Comment on above: Performed By: #### C BC, CP, LIPR, VD25 #### [facility] [address] [place] [address] CO2 molar conc 21 mmol/L Normal 20-31 [facility] Comment on above: Performed By: #### C BC, CP, LIPR, VD25 #### [facility] [address] [place] [address] Creatinine mass conc 0.52 mg/dL Normal 0.50-0.90 [facility] Comment on above: Performed By: #### C BC, CP, LIPR, VD25 #### [facility] [address] [place] [address] GFR, Amer >60 Normal >60 [facility] Comment on above: Performed By: #### C BC, CP, LIPR, VD25 #### [facility] [address] [place] [address] GFR,non Amer >60 Normal >60 [facility] Comment on above: Performed By: #### C BC, CP, LIPR, VD25 #### [facility] [address] [place] [address] Glucose mass conc 93 mg/dL Normal 70-99 [facility] Comment on above: Performed By: #### C BC, CP, LIPR, VD25 #### [facility] [address] [place] [address] Potassium molar conc 3.8 mmol/L Normal 3.7-5.3 [facility] Comment on above: Performed By: #### C BC, CP, LIPR, VD25 #### [facility] [address] [place] [address] Protein mass conc 7.6 g/dL Normal 6.4-8.3 [facility] Comment on above: Performed By: #### C BC, CP, LIPR, VD25 #### [facility] [address] [place] [address] Sodium molar conc 144 mmol/L Normal 135-144 [facility] Comment on above: Performed By: #### C BC, CP, LIPR, VD25 #### [facility] [address] [place] [address] Urea nitrogen mass conc 9 mg/dL Normal 6-20 [facility] Comment on above: Performed By: #### C BC, CP, LIPR, VD25 #### [facility] [address] [place] [address] BUN/CRE Ratio NOT REPORTED Normal 9-20 [facility] Comment on above: Performed By: #### C BC, CP, LIPR, VD25 #### [facility] [address] [place] [address] Staging: NOT REPORTED Normal [facility] Comment on above: Performed By: #### C BC, CP, LIPR, VD25 #### [address] [address] Lipid Profileon 09-10-2018 Cholesterol in HDL mass conc 47 mg/dL Normal >40 [facility] Comment on above: Result Comment: HDL Guidelines: <40 Undesirable 40-59 Borderline >59 Desirable Performed By: #### C BC, CP, LIPR, VD25 #### [address] [address] Cholesterol in LDL mass conc 134 mg/dL High 0-130 [facility] Comment on above: Result Comment: LDL Guidelines: <100 Desirable 100-129 Near to/above Desirable 130-159 Borderline >159 Undesirable Direct (measured) LDL and calculated LDL are not interchangeable tests. Performed By: #### C BC, CP, LIPR, VD25 #### [facility] [address] [place] [address] Cholesterol mass conc 227 mg/dL High <200 [facility] Comment on above: Result Comment: Cholesterol Guidelines: <200 Desirable 200-240 Borderline >240 Undesirable Performed By: #### C BC, CP, LIPR, VD25 #### [facility] [address] [place] [address] Cholesterol.total/Cho lesterol in HDL mass ratio 4.8 {ratio} Normal <5 [facility] Comment on above: Performed By: #### C BC, CP, LIPR, VD25 #### [facility] [address] [place] [address] Triglyceride mass conc 229 mg/dL High <150 [facility] Comment on above: Result Comment: Triglyceride Guidelines: <150 Desirable 150-199 Borderline 200-499 High >499 Very high Based on AHA Guidelines for fasting triglyceride, July 2012. Performed By: #### C BC, CP, LIPR, VD25 #### [employer] [address] [place], [place] [phone] Cholesterol in VLDL mass conc NOT REPORTED Normal -30 [facility] Comment on above: Performed By: #### C BC, CP, LIPR, VD25 #### [facility] [address] [place], [place] [id number] Vitamin D 25 OHon 09-10-2018 Vitamin D 25 OH 12.1 ng/mL Low 30.0-100.0 [facility] Comment on above: Result Comment: Reference Range: Vitamin D status Range Deficiency <20 ng/mL Mild Deficiency 20-30 ng/mL Sufficiency 30-100 ng/mL Toxicity >100 ng/mL Performed By: #### C BC, CP, LIPR, VD25 #### [facility] [address] [place], [place] [id number] HCG, ,Urineon 01-12 HCG.beta subunit ( test) Ql (U) Negative Normal NEG [facility] Comment on above: Result Comment: Spec imens with hCG levels near the threshold of the test (25 mIU/mL) may give a negative or indeterminate result. In such cases, another test should be performed with a new specimen in 48-72 hours. If early is suspected clinically in this setting, correlation with quantitative serum b-hCG level is suggested. Performed at [facility], [address] [place] [address] UA w/Reflex Cultureon 2017 Comment NOT REPORTED Normal [facility] Acetoacetic Acid,Ur Negative Normal NEG [facility] Bilirubin.direct mass conc Negative Normal NEG [facility] Color Nom (U) YELLOW Normal YEL [facility] Glucose mass conc Negative Normal NEG [facility] Hemoglobin mass conc (Bld) SMALL Abnormal NEG [facility] Leuckocyte Esterase Negative Normal NEG [facility] Comment on above: Result Comment: Perf ormed at [facility], [address] [place], [place] [id number] Nitrite,Ur Negative Normal NEG [facility] PH,Ur 7.0 Normal 5.0-8.0 [facility] Protein mass conc Negative Normal NEG [facility] Spec. [place],Ur 1.015 Normal 1.005-1.030 [facility] Turbidity CLEAR Normal CLEAR [facility] Urobilinogen,Ur Normal Normal NORM [facility] Urinalysis,Microon 8 Amorphous sediment LM Ql (Urine sed) NOT REPORTED Normal [facility] Bacteria LM.HPF #/area (Urine sed) NOT REPORTED Normal NONE [facility] Casts LM.LPF #/area (Urine sed) NOT REPORTED Normal [facility] Crystals LM Nom (Urine sed) NOT REPORTED Normal NONE [facility] Epithelial, Renal NOT REPORTED Normal 0 [facility] Mucus Strands NOT REPORTED Normal NONE [facility] Trichomonas NOT REPORTED Normal NONE [facility] Yeast LM Ql (Urine sed) NOT REPORTED Normal NONE [facility] ----- Normal [facility] Epithelial cells LM.HPF #/area (Urine sed) 0 TO 2 Normal 05 [facility] Other Observations Utilizing a urinalysis as the only screening method to exclude a potential Abnormal NREQ [facility] Comment on above: Result Comment: urop athogen can be unreliable in many patient populations. Rapid screening tests are less sensitive than culture and if UTI is a clinical possibility, culture should be considered despite a negative urinalysis. Performed at [facility], [address] [place] [phone] RBC #/vol (U) 0 TO 2 Normal 0-2 [facility] WBC #/vol (U) None Normal 0-5 [facility] Vital Signs Date Time Vital Sign Value Performing Clinician Facility 08-25-2024 07:16-0400 Body height 167.6 cm Frank Reis MD Work Phone: [facility] 08-25-2024 07:16-0400 Body mass index (BMI) [Ratio] 52.13 kg/m2 Frank Reis MD Work Phone: [facility] 08-25-2024 07:16-0400 Body temperature 97.81 [degF] Frank Reis MD Work Phone: [facility] 08-25-2024 07:16-0400 Body weight 146.51 kg Frank Reis MD Work Phone: [facility] 08-25-2024 07:16-0400 Diastolic blood pressure 62 mm[Hg] Frank Reis MD Work Phone: [facility] 08-25-2024 07:16-0400 Heart rate 87 /min Frank Reis MD Work Phone: [facility] 08-25-2024 07:16-0400 Respiratory rate 18 /min Frank Reis MD Work Phone: [facility] 08-25-2024 07:16-0400 SaO2% (BldA) [Mass fraction] 93 % Frank Reis MD Work Phone: [facility] 08-25-2024 07:16-0400 Systolic blood pressure 124 mm[Hg] Frank Reis MD Work Phone: [facility] 08-22-2024 13:52-0400 Body mass index (BMI) [Ratio] 52.34 kg/m2 Leonoravu Peterson [employer] Work Phone: [facility] 08-22-2024 13:52-0400 Body temperature 97.5 [degF] Leonoravu Munozok [employer]ATION CONSULTANT Work Phone: [facility] 08-22-2024 13:52-0400 Body weight 147.1 kg Leonoravu Munozok COMPENSATION CONSULTANT Work Phone: [facility] 08-22-2024 13:52-0400 Diastolic blood pressure 92 mm[Hg] Leonoravu Peterson COMPENSATION CONSULTANT Work Phone: [facility] [employer] 08-22-2024 13:52-0400 Heart rate 87 /min Leonora Peterson COMPENSATION CONSULTANT Work Phone: [facility] [employer] 08-22-2024 13:52-0400 SaO2% (BldA) [Mass fraction] 98 % Leonora Peterson COMPENSATION CONSULTANT Work Phone: [facility] [employer] 08-22-2024 13:52-0400 Systolic blood pressure 132 mm[Hg] Leonora Peterson COMPENSATION CONSULTANT Work Phone: [facility] [employer] 07-17-2023 10:40-0400 Body height 165.1 cm Octavia Keen Other [employer] Other 07-17-2023 10:40-0400 Body mass index (BMI) [Ratio] 57.74 kg/m2 Octavia Keen Other [employer] Other 07-17-2023 10:40-0400 Body temperature 98.3 [degF] Octavia Keen Other [employer] Other 07-17-2023 10:40-0400 Body weight 157.4 kg Octavia Keen Other [employer] Other 07-17-2023 10:40-0400 Diastolic blood pressure 94 mm[Hg] Octavia Keen Other [employer] Other 07-17-2023 10:40-0400 Respiratory rate 18 /min Octavia Keen Other [employer] Other 07-17-2023 10:40-0400 SaO2% (BldA) [Mass fraction] 98 % Octavia Keen Other [employer] Other 07-17-2023 10:40-0400 Systolic blood pressure 147 mm[Hg] Octavia Keen Other [employer] Other 02-04-2023 15:10-0400 Body height 165.1 cm Lili Borges Other [employer] Other 02-04-2023 15:10-0400 Body mass index (BMI) [Ratio] 57.9 kg/m2 Lili Borges Other [employer] Other 02-04-2023 15:10-0400 Body temperature 99.1 [degF] Lili Borges Other [employer] Other 02-04-2023 15:10-0400 Body weight 157.85 kg Lili Borges Other [employer] Other 02-04-2023 15:10-0400 Diastolic blood pressure 100 mm[Hg] Lili Borges Other [employer] Other 02-04-2023 15:10-0400 Respiratory rate 18 /min Lili Borges Other [employer] Other 02-04-2023 15:10-0400 SaO2% (BldA) [Mass fraction] 96 % Lili Borges Other [employer] Other 02-04-2023 15:10-0400 Systolic blood pressure 153 mm[Hg] Lili Borges Other [employer] Other 07-11-2022 12:50-0400 Body height 165.1 cm Lili Borges Other [employer] Other 07-11-2022 12:50-0400 Body mass index (BMI) [Ratio] 59.9 kg/m2 Lili Jony Other [employer] Other 07-11-2022 12:50-0400 Body temperature 97.7 [degF] Lili Borges Other [employer] Other 07-11-2022 12:50-0400 Body weight 163.3 kg Lili Borges Other [employer] Other 07-11-2022 12:50-0400 Respiratory rate 18 /min Lili Jony Other [employer] Other 07-11-2022 12:50-0400 SaO2% (BldA) [Mass fraction] 97 % Lili Borges Other [employer] Other 10-10-2021 15:15-0500 Body height 165.1 cm Marcia Gregorymond Other [employer] Other 10-10-2021 15:15-0500 Body mass index (BMI) [Ratio] 58.24 kg/m2 Marcia Bessie Other [employer] Other 10-10-2021 15:15-0500 Body temperature 98.2 [degF] Marcia Bessie Other [employer] Other 10-10-2021 15:15-0500 Body weight 158.76 kg Marcia Bessie Other [employer] Other 10-10-2021 15:15-0500 Respiratory rate 18 /min Marcia Bessie Other [employer] Other 10-10-2021 15:15-0500 SaO2% (BldA) [Mass fraction] 96 % Marcia La Other [employer] Other 08-31-2021 11:45-0400 Body height 165.1 cm Lili Ginty Other [employer] Other 08-31-2021 11:45-0400 Body mass index (BMI) [Ratio] 58.24 kg/m2 Lili Ginty Other [employer] Other 08-31-2021 11:45-0400 Body temperature 97.8 [degF] Lili Ginty Other [employer] Other 08-31-2021 11:45-0400 Body weight 158.76 kg Lili Ginty Other [employer] Other 08-31-2021 11:45-0400 SaO2% (BldA) [Mass fraction] 94 % Lili Ginty Other [employer] Other Encounters Encounter Date Encounter Type Care Provider Facility Start: 08-25-2024 End: 08-25-2024 Bamboo flowsheet Frank Reis MD Work Phone: [facility] Start: 08-25-2024 End: 08-25-2024 Bamboo flowsheet Frank Reis MD Work Phone: [facility] Start: 08-25-2024 End: 08-25-2024 Refill Frank Reis MD Work Phone: [facility] Comment on above: Major depressive dis order, recurrent, mild (HCC) (CMS/HCC); Major depressive disorder, recurrent episode, mild (HCC) (CMS/HCC) Start: 08-25-2024 End: 08-25-2024 Office outpatient visit 25 minutes Frank Reis MD Work Phone: [facility] Comment on above: Essential hypertensi on (CMS/HCC) (Primary Dx); Major depressive disorder, recurrent, moderate (CMS/HCC); ZOHRA (generalized anxiety disorder) (CMS/HCC); Migraine without aura and without status migrainosus, not intractable (CMS/HCC) Start: 08-22-2024 End: 08-22-2024 ambulatory LEONORA Sunita PETERSON Not Available Start: 08-22-2024 End: 08-22-2024 Office outpatient visit 25 minutes Leonora Peterson COMPENSATION CONSULTANT Work Phone: [facility] Comment on above: Acute rhinosinusitis (Primary Dx); Pharyngitis, unspecified etiology Start: 07-16-2024 End: 07-16-2024 ambulatory FRANK REIS Not Available Start: 03-31-2024 End: 03-31-2024 ambulatory FRANK REIS Not Available Start: 01-29-2024 End: 01-29-2024 ambulatory FRANK REIS Not Available Start: 12-26-2023 Patient encounter procedure Frank Reis MD Work Phone: [facility] Start: 12-26-2023 End: 12-26-2023 ambulatory FRANK REIS Not Available Start: 12-01-2023 Refill Frank Vasques Work Phone: [facility] Comment on above: Major depressive dis order, recurrent, mild (HCC) (CMS/HCC); Major depressive disorder, recurrent episode, mild (HCC) (CMS/HCC) Start: 09-22-2023 End: 09-22-2023 ambulatory GER MYRICK Not Available Start: 09-08-2023 End: 09-08-2023 ambulatory ANGY ELIZONDO Not Available Start: 07-17-2023 End: 07-17-2023 ambulatory Octavia Keen Other [employer] Other Start: 07-17-2023 Office outpatient vi sit 15 minutes Octavia Keen [facility] Start: 02-22-2023 Encounter for genera l adult medical examination without abnormal findings DR FRANK REIS [facility] Start: 02-19-2023 End: 02-20-[address] FRANK REIS Facility:[facility] Start: 02-19-2023 End: 02-20-2023 Encounter for general adult medical examination without abnormal findings DR FRANK REIS Facility:[facility] Start: 02-04-2023 End: 02-04-2023 ambulatory Lili Borges Other [employer] Other Start: 02-04-2023 Office outpatient vi sit 25 minutes Lili Borges [facility] Start: 07-11-2022 End: 07-11-2022 ambulatory Lili Borges Other [employer] Other Start: 07-11-2022 Office outpatient vi sit 25 minutes Lili Borges [facility] Start: 03-05-2022 End: 03-05-[address] MAYRA GARCIA . Facility:[facility] Start: 10-10-2021 End: 10-10-2021 ambulatory Marcia Bessie Other [employer] Other Start: 10-10-2021 Office outpatient vi sit 15 minutes Marcia Bessie [facility] Start: 08-31-2021 End: 08-31-2021 ambulatory Lili Ginty Other [employer] Other Start: 08-31-2021 Office outpatient vi sit 15 minutes Lili Ginty [facility] Start: 09-10-2018 Encounter for genera l adult medical examination without abnormal findings FRANK REIS [facility] Start: 09-10-2018 End: 09-11-2018 Patient encounter procedure MAYDA DAMIAN [facility] Start: 01-12-2018 End: 01-12-2018 Emergency department patient visit FRANK REIS [facility] Start: 12-29-2017 End: 12-29-2017 Emergency department patient visit FRANK REIS [facility] Procedures Date Procedure Procedure Detail Performing Clinician Start: 08-22-2024 STATUS COVID-19/FLU Ana Peterson COMP[employer]ATION CONSULTANT Work Phone: Start: 08-22-2024 Iadna streptococcus group a amplified probe tq Leonora Peterson COMPENSATION CONSULTANT Work Phone: Start: 09-10-2018 Blood count complete automated FRANK REIS Start: 09-10-2018 Comprehensive metabo lic panel FRANK REIS Start: 09-10-2018 Lipid panel [facility] Start: 09-10-2018 VITAMIN D 25 HYDROXY MA RC NADERER Start: 01-12-2018 Microscopic urinalysis FRANK REIS Start: 01-12-2018 , URINE FRANK Hart ADERER Start: 01-12-2018 UA W/REFLEX CULTURE LETI Neena CHATO Plan of Treatment Date Care Activity Detail Author Start: 10-01-2024 End: 10-01-2024 Patient encounter procedure 10/01/2024 11:00 AM EST [facility] [address] [place] [address] Frank Reis MD [address] [place] [address] [facility] Start: 09-09-2024 End: 09-09-2024 Patient encounter procedure 09/09/2024 9:00 AM EST Office Visit [facility] [address] [place] [id number] Angy Elizondo PA [address] [place] [address] [facility] Start: 06-27-2024 Influenza vaccination Influenza Vacc ine (#1) [facility] Start: 06-27-2023 Influenza vaccination Influenza Vacc ine (#1) [facility] Start: 2016 Screening for malign ant neoplasm of cervix [facility] Start: 2007 Screening for malign ant neoplasm of cervix Pap Smear [facility] Payers Date Payer Category Payer [facility] (unspecified) [id number] 1986 Unknown [id number] 1986 Unknown [id number] [id number] 1986 Unknown [id number] [id number] 1986 Unknown [id number] 2.16.84 [id number] 1986 Unknown [id number] 2.16.84 [id number] 1986 Unknown [id number] [id number] 1986 Unknown [id number] [id number] 1986 Unknown [id number] [id number] 1986 Unknown [id number] [id number] 1986 Unknown [id number] [id number] 1986 Unknown [id number] [id number] 1986 Unknown [id number] 2.16.840 .[id number] 1986 Unknown [id number] 2.16.840. [id number] 1958 [employer] [id number] 1958 Private Health Insurance [id number] Social History Date Type Detail Facility Unknown if ever smoked [facility] Other Start: 09-05-2023 End: 12-24-2023 Sex Assigned At [facility] [email or web address] Other Start: 09-05-2023 End: 12-26-2023 Tobacco smoking status NHIS Never smoked tobacco [facility] Start: 09-22-2023 End: 08-22-2024 Alcohol intake Current drinker of alcohol (finding) [facility] Start: 09-05-2023 End: 12-24-2023 History of Social function [facility] How often to you hav e a drink containing alcohol? Monthly or less [facility] How many standard dr inks containing alcohol do you have on a typical day? 1 or 2 [facility] How often do you hav e 6 or more drinks on 1 occasion? Never [facility] Start: 09-05-2023 Alcohol Comment Caffeine intake: 1-2 cups per day [facility] Start: 1985 Sex Assigned At Not on file [facility] Start: 12-26-2023 Tobacco use and exposure Smokeless tobacco non-user [facility] Do you belong to any clubs or organizations such as gnosticism groups, unions, fraternal or athletic groups, or school groups? Patient declined [facility] Are you now , , , , never or living with a partner? [facility] How hard is it for y ou to pay for the very basics like food, housing, medical care, and heating Not very hard [facility] Do you feel stress - tense, restless, nervous, or anxious, or unable to sleep at night because your mind is troubled all the time - these days [OSQ] Very much [facility] In the past 12 month s, was there a time when you were not able to pay the mortgage or rent on time? No [facility] Clinical Notes 08-31-2021 to 08-25-2024 Frank Reis MD - 08/25/2024 7:40 AM Qi Reis MD - 08/25/2024 7:40 AM Qi Reis MD - 08/25/2024 7:40 AM Qi Reis MD - 08/25/2024 7:40 AM EDTPatient Instructions Note Date & Type Note Facility 10-30-2024 History of Presen t illness Narrative Associated Problem(s): ZOHRA (generalized anxiety disorder) (CMS/HCC) Symptoms unchanged and add abilify. Continue lamictal and effexor. Use klonopin PRN. Associated Problem(s): Major depressive disorder, recurrent, moderate (CMS/HCC) Symptoms unchanged and add abilify. Continue lamictal and effexor. Associated Problem(s): Migraine without aura and without status migrainosus, not intractable (CMS/HCC) WILSON stable and use imitrex PRN. Associated Problem(s): Essential hypertension (CMS/HCC) BP controlled and monitor PRN. Images from the original note were not included. Subjective Patient ID: Consuelo Dobson is a 38 y.o. female who presents for Follow-up (1 m f/up on depression/anxiety. Not any better). Follow up HTN, migraines, depression, anxiety, and weight. Checking BP PRN and typically controlled. BP normal today. Taking medication daily and tolerating without side effects. Migraines stable and WILSON 1-2 times a week. Throbbing pain in entire head associated with photophobia, phonophobia and nausea. Using imitrex PRN helps when needed. Depression unchanged. Increased lamictal last visit but no improvement in symptoms. Down, sad, and no motivation. Not want to do anything or be around others. Anxiety unchanged. Severe stress and not handling well. Nervous and worry all the time. Stressed out and overwhelmed. Thought racing and hard to clear mind. Brand, irritable and snapping at others. Easily upset and overreact. Using klonopin PRN and mild relief. Review of Systems Respiratory: Negative for cough, shortness of breath and wheezing. Cardiovascular: Negative for chest pain and palpitations. Gastrointestinal: Negative for abdominal pain, diarrhea, nausea and vomiting. Genitourinary: Negative for dysuria. Objective Physical Exam Constitutional: General: She is not in acute distress. Appearance: Normal appearance. HENT: Head: Normocephalic. Right Ear: Tympanic membrane normal. Left Ear: Tympanic membrane normal. Eyes: Extraocular Movements: Extraocular movements intact. Pupils: Pupils are equal, round, and reactive to light. Cardiovascular: Rate and Rhythm: Normal rate and regular rhythm. Heart sounds: No murmur heard. No friction rub. No gallop. Pulmonary: Effort: Pulmonary effort is normal. Breath sounds: Normal breath sounds. No wheezing, rhonchi or rales. Abdominal: General: Bowel sounds are normal. There is no distension. Palpations: Abdomen is soft. Tenderness: There is no abdominal tenderness. There is no guarding or rebound. Musculoskeletal: Cervical back: Neck supple. Right lower leg: No edema. Left lower leg: No edema. Neurological: Mental Status: She is alert. Assessment/Plan Problem List Items Addressed This Visit Essential hypertension (CMS/HCC) - Primary BP controlled and monitor PRN. Migraine without aura and without status migrainosus, not intractable (CMS/HCC) WILSON stable and use imitrex PRN. Major depressive disorder, recurrent, moderate (CMS/HCC) Symptoms unchanged and add abilify. Continue lamictal and effexor. Relevant Medications ARIPiprazole (Abilify) 5 MG tablet ZOHRA (generalized anxiety disorder) (CMS/HCC) Symptoms unchanged and add abilify. Continue lamictal and effexor. Use klonopin PRN. documented in this encounter [facility] 08-22-2024 History of Presen t illness Narrative HPI: Historian of HPI: patient Consuelo Dobson is a 38 y.o. female who presents today to the Urgent Care with the following complaints and denials which have been present for 1 week(s) C/O Denies Symptom Comments [] [x] Runny Nose [] [x] Difficulty Swallowing [x] [] Sore Throat [x] [] Cough Dry for the most part [x] [] Ear Pain B/L [] [x] Fever [] [x] Chills [x] [] Nasal Congestion [] [x] Myalgia [x] [] Sinus Pain [x] [] Sinus Pressure Additional Comments: pt has taken Delsym Mucinex D, tylenol & ibuprofen OTC medication without relief Denies Fever, chills, NVD ROS: A complete system ROS was performed and negative aside from the pertinent positives noted in the HPI and PE. IH Testing: The following tests were performed PCR Strep Test Rapid Flu Test Rapid COVID Test SEE TEST(S) ORDERS FOR RESULTS Examination General Examination: General Examination: alert, oriented, normal affect, well appearing, in no acute distress, well developed, well nourished Head: normocephalic, atraumatic Eyes: sclera non-icteric Ears: tympanic membrane intact, clear, bulging, auditory canal non inflamed Nose: congested with frontal and maxillary tenderness. Oral Cavity: mucosa moist, no lesions Throat: PND noted Neck/Thyroid: trachea midline Lymph Nodes: no cervical adenopathy Heart: no murmurs, regular rate and rhythm, S1, S2 normal Lungs: clear to auscultation bilaterally. Dry cough Extremities: no edema, no cyanosis Neurologic: alert and oriented Psych: alert, oriented, cognitive function intact, cooperative with exam 1. Pharyngitis, unspecified etiology Strep, Covid-19, and influenza all negative today. - STREP DNA PROBE - STATUS COVID-19/FLU 2. Acute rhinosinusitis (Primary) Diagnosis and treatment discussed with patient. Immediate eval if new, worsening sx otherwise f/u with PCP if sx not resolved in 7 days, sooner if not improving over next 3-4 days. To ED for trouble swallowing secretions, shortness of breath, or other red flag symptoms. Advised Pt on supportive therapies, including using a vaporizer/humidifer/steam from hot showers, lots of fluids as tolerated, rest, avoidance of second-hand smoke, frequent hand-washing w/ soap and water, and OTC acetaminophen or ibuprofen as directed prn for pain control - azithromycin (Zithromax) 250 MG tablet; Take 2 tabs (500 mg) by mouth today, than 1 tab (250 mg) daily for 4 days. Dispense: 6 tablet; Refill: 0 - benzonatate (Tessalon Perles) 100 MG capsule; Take 1 capsule (100 mg) by mouth 3 (three) times a day as needed for cough for up to 7 days Do not crush or chew. Dispense: 21 capsule; Refill: 0 documented in this encounter [facility] 08-22-2024 Instructions Leonora Peterson NP - 08/22/2024 1:50 PM EDT documented in this encounter [facility] 07-17-2023 Evaluation note Encounter Date Diagnosis Assessment [...] antibiotic. Patient verbalized understanding of treatment plan. [facility] Other 04-11-2023 Evaluation note* Encounter Date Diagnosis Assessment Notes Treatment Notes Treatment Clinical Notes Jan, Contact with and (suspected) exposure [...] of diseases classified elsewhere (ICD-10 - B97.89) [facility] Other 09-15-2022 Evaluation note* Encounter Date Diagnosis Assessment Notes Treatment Notes Treatment Clinical Notes Jun, Contact with and (suspected) exposure [...] rest, may use Tylenol as needed for fever/discomfort, cool mist humidifier. May use [place] as needed for cough, do not take any other OTCs while using [place]. Patient to follow up with PCP in 2-3 days. Immediate eval if SOB, difficulty breathing, chest pain, dizziness, or other concerning symptoms. Patient verbalizes understanding and is agreeable to treatment plan [facility] Other 12-15-2021 Evaluation note* Encounter Date Diagnosis Assessment Notes Treatment Notes Treatment Clinical Notes Sep, Contact with and (suspected) exposure [...] Patient care instructions given in writting by [email or web address] [employer] [facility] document. [facility] Other 11-05-2021 Evaluation note* Encounter Date Diagnosis Assessment Notes Treatment Notes Treatment Clinical Notes Aug, Contact with and (suspected) exposure [...] Patient care instructions given in writting by [email or web address] [employer] document [facility] Evaluation note* Diagnosis Major depressive disorder, recurrent, mild (HCC) (CMS/HCC) Major depressive disorder, recurrent episode, mild Major depressive disorder, recurrent episode, mild (HCC) (CMS/HCC) Major depressive disorder, recurrent episode, mild documented in this encounter [facility]* Diagnosis Essential hypertension (CMS/HCC)- Primary Unspecified essential hypertension MDD (major depressive disorder), recurrent episode, mild (HCC) (CMS/HCC) ZOHRA (generalized anxiety disorder) (CMS/HCC) Generalized anxiety disorder Migraine without aura and without status migrainosus, not intractable (CMS/HCC) Morbid obesity due to excess calories (CMS/HCC) Body mass index [BMI] 50.0-59.9, adult (Z68.43) Annual physical exam Routine general medical examination at a health care facility Seasonal allergic rhinitis due to pollen Intercostal muscle strain, subsequent encounter- Primary Essential hypertension (CMS/HCC) Unspecified essential hypertension Essential hypertension (CMS/HCC)- Primary Unspecified essential hypertension MDD (major depressive disorder), recurrent episode, mild (HCC) (CMS/HCC) ZOHRA (generalized anxiety disorder) (CMS/HCC) Generalized anxiety disorder Migraine without aura and without status migrainosus, not intractable (CMS/HCC) Morbid obesity due to excess calories (CMS/HCC) Seasonal allergic rhinitis due to pollen Major depressive disorder, recurrent, mild (HCC) (CMS/HCC) Major depressive disorder, recurrent episode, mild Major depressive disorder, recurrent episode, mild (HCC) (CMS/HCC) Major depressive disorder, recurrent episode, mild Essential hypertension (CMS/HCC)- Primary Unspecified essential hypertension Major depressive disorder, recurrent, moderate (CMS/HCC) Major depressive disorder, recurrent episode, moderate ZOHRA (generalized anxiety disorder) (CMS/HCC) Generalized anxiety disorder Migraine without aura and without status migrainosus, not intractable (CMS/HCC) Morbid obesity due to excess calories (CMS/HCC) Essential hypertension (CMS/HCC)- Primary Unspecified essential hypertension Major depressive disorder, recurrent, moderate (CMS/HCC) Major depressive disorder, recurrent episode, moderate ZOHRA (generalized anxiety disorder) (CMS/HCC) Generalized anxiety disorder Migraine without aura and without status migrainosus, not intractable (CMS/HCC) documented in this encounter [facility]* Diagnosis Essential hypertension (CMS/HCC)- Primary Unspecified essential hypertension MDD (major depressive disorder), recurrent episode, mild (HCC) (CMS/HCC) ZOHRA (generalized anxiety disorder) (CMS/HCC) Generalized anxiety disorder Migraine without aura and without status migrainosus, not intractable (CMS/HCC) Morbid obesity due to excess calories (CMS/HCC) Body mass index [BMI] 50.0-59.9, adult (Z68.43) Annual physical exam Routine general medical examination at a health care facility Seasonal allergic rhinitis due to pollen Intercostal muscle strain, subsequent encounter- Primary Essential hypertension (CMS/HCC) Unspecified essential hypertension Essential hypertension (CMS/HCC)- Primary Unspecified essential hypertension MDD (major depressive disorder), recurrent episode, mild (HCC) (CMS/HCC) ZOHRA (generalized anxiety disorder) (CMS/HCC) Generalized anxiety disorder Migraine without aura and without status migrainosus, not intractable (CMS/HCC) Morbid obesity due to excess calories (CMS/HCC) Seasonal allergic rhinitis due to pollen Major depressive disorder, recurrent, mild (HCC) (CMS/HCC) Major depressive disorder, recurrent episode, mild Major depressive disorder, recurrent episode, mild (HCC) (CMS/HCC) Major depressive disorder, recurrent episode, mild Essential hypertension (CMS/HCC)- Primary Unspecified essential hypertension Major depressive disorder, recurrent, moderate (CMS/HCC) Major depressive disorder, recurrent episode, moderate ZOHRA (generalized anxiety disorder) (CMS/HCC) Generalized anxiety disorder Migraine without aura and without status migrainosus, not intractable (CMS/HCC) Morbid obesity due to excess calories (CMS/HCC) Essential hypertension (CMS/HCC)- Primary Unspecified essential hypertension Major depressive disorder, recurrent, moderate (CMS/HCC) Major depressive disorder, recurrent episode, moderate ZOHRA (generalized anxiety disorder) (CMS/HCC) Generalized anxiety disorder Migraine without aura and without status migrainosus, not intractable (CMS/HCC) Major depressive disorder, recurrent, mild (HCC) (CMS/HCC) Major depressive disorder, recurrent episode, mild Major depressive disorder, recurrent episode, mild (HCC) (CMS/HCC) Major depressive disorder, recurrent episode, mild [facility] Diagnosis Essential hypertension (CMS/HCC)- Primary Unspecified essential hypertension MDD (major depressive disorder), recurrent episode, mild (HCC) (CMS/HCC) ZOHRA (generalized anxiety disorder) (CMS/HCC) Generalized anxiety disorder Migraine without aura and without status migrainosus, not intractable (CMS/HCC) Morbid obesity due to excess calories (CMS/HCC) Body mass index [BMI] 50.0-59.9, adult (Z68.43) Annual physical exam Routine general medical examination at a health care facility Seasonal allergic rhinitis due to pollen Intercostal muscle strain, subsequent encounter- Primary Essential hypertension (CMS/HCC) Unspecified essential hypertension Essential hypertension (CMS/HCC)- Primary Unspecified essential hypertension MDD (major depressive disorder), recurrent episode, mild (HCC) (CMS/HCC) ZOHRA (generalized anxiety disorder) (CMS/HCC) Generalized anxiety disorder Migraine without aura and without status migrainosus, not intractable (CMS/HCC) Morbid obesity due to excess calories (CMS/HCC) Seasonal allergic rhinitis due to pollen Major depressive disorder, recurrent, mild (HCC) (CMS/HCC) Major depressive disorder, recurrent episode, mild Major depressive disorder, recurrent episode, mild (HCC) (CMS/HCC) Major depressive disorder, recurrent episode, mild Essential hypertension (CMS/HCC)- Primary Unspecified essential hypertension Major depressive disorder, recurrent, moderate (CMS/HCC) Major depressive disorder, recurrent episode, moderate ZOHRA (generalized anxiety disorder) (CMS/HCC) Generalized anxiety disorder Migraine without aura and without status migrainosus, not intractable (CMS/HCC) Morbid obesity due to excess calories (CMS/HCC) Acute rhinosinusitis- Primary Pharyngitis, unspecified etiology Essential hypertension (CMS/HCC)- Primary Unspecified essential hypertension Major depressive disorder, recurrent, moderate (CMS/HCC) Major depressive disorder, recurrent episode, moderate ZOHRA (generalized anxiety disorder) (CMS/HCC) Generalized anxiety disorder Migraine without aura and without status migrainosus, not intractable (CMS/HCC) [facility] - Reported* Type Description Date Medical History HTN (hypertension) Medical History migraine headaches Medical History anxiety Medical History insomnia Surgical History cholecystectomy Surgical History tonsillectomy Surgical History [facility] Hospitalization History See Above Hospitalization History kidney stones 06/2017 [facility] Other Summary Purpose Family History No Family History Records FoundNo Family History Records FoundNo Family History Records Found Advance Directives No Advanced Directives Records FoundNo Advanced Directives Records FoundNo Advanced Directives Records Found Additional Source Comments INFORMATION SOURCE (unrecogn ized section and content) DATE CREATED AUTHOR 11/16/[address] [facility] DATE CREATED AUTHOR AUTHOR'S ORGANIZ ATION 02/22/2023 [facility] DATE CREATED AUTHOR AUTHOR'S ORGANIZ ATION 08/26/2024 [facility] EPIC REASON FOR VISIT (unrecogniz ed section and content) Reason Comments Med Refill Reason Comments Follow-up 1 m f/up on depressi on/anxiety. Not any better Reason Onset Date Comments Med Refill 08/25/2024 Care Teams (unrecognized sec tion and content) Athletics Director Relationship Specialty Start Date End Date Frank Reis MD PCP - General Family Medicine 08/27/23 Athletics Director Relationship Specialty Start Date End Date Frank Resi MD [address] [place] [id number] PCP - General Family Medicine 12/16/23 Athletics Director Relationship Specialty Start Date End Date Frank Reis MD [address] [place] [id number] PCP - General Family Medicine 12/16/23 FOR RECORDS PERTAINING TO PATIENTS WHO ARE [...] BE BASED ON THE PRIMARY CLINICAL RECORDS. [employer] provides no warranty or guarantee of the accuracy or completeness of information in this document.
== END 2024-09-09 20:40 | disposition home or self-care (01) ==
LOC: LAB 20:39
PROVIDERS: PCP Family Medicine; Visit Provider Physician Assistant
DX: Z01.419 Encounter for gynecological examination (general) (routine) without abnormal findings (principal)
CPT/HCPCS: 88175